=== PATIENT | male | born 1945 | race Caucasian/White ===

== ENCOUNTER 2020-02-05 02:53 | Outpatient (CLI) | payer OTHER, SELFPAY ==
[2020-02-05 12:19] LABS: Anion Gap 7.3 mmol/L (3-11); BUN 16 mg/dL (7-18); CO2 27.7 mmol/L (21.0-32.0); Calcium 9.1 mg/dL (8.5-10.1); Calculated LDL 105 mg/dL (<100); Chloride 104 mmol/L (98-107); Cholesterol 178 mg/dL (<200); Glucose 93 mg/dL (74-106); HDL Cholesterol 52 mg/dL (40-60); Potassium 4.4 mmol/L (3.5-5.1); Sodium 139 mmol/L (136-145); Triglyceride 106 mg/dL (<150)
[2020-02-06 11:39] LABS: Hepatitis C Ab w Rflx HCV PCR Negative (Negative)
[2020-02-09 20:56] LABS: Anaplasma phagocytophilum Negative (Negative); B. miyamotoi PCR Negative (Negative); Babesia divergens/MO-1 Negative (Negative); Babesia duncani Negative (Negative); Babesia microti Negative (Negative); Ehrlichia chaffeensis Negative (Negative); Ehrlichia ewingii/canis Negative (Negative); Ehrlichia muris eauclairensis Negative (Negative)
== END 2020-02-05 03:13 ==
PROVIDERS: PCP Family Medicine; Visit Provider Family Medicine
DX: I10 Essential (primary) hypertension (principal); R35.1 Nocturia; N40.1 Benign prostatic hyperplasia with lower urinary tract symptoms; E66.9 Obesity, unspecified; Z11.59 Encounter for screening for other viral diseases
CPT/HCPCS: 36415; 80048; 80061; 86803; 87798; 84154

== ENCOUNTER 2021-09-22 12:29 | Emergency (ER) | payer OTHER, SELFPAY ==
--- NOTE | 2021-09-22 12:30 | RT.EKG_ITS ---
APPROVED REPORT Exam: Resting ECG Reason for Exam: High bp Patient Location: E HR:74 bpm ECG Measurements Heart Rate 74 AXIS AK 162 P 63 QRSd 138 QRS 57 QT 422 T 34 QTc 468 Conclusion Sinus rhythm...normal P axis, V-rate 60- 99 Right bundle branch block...QRSd>120, terminal axis(90,270) Physician: Rate 74, intervals stable, QRS slightly widened, right bundle branch block. This does earl ear to be new compared to EKG from 2015. Negative for SCARBOSSA
[2021-09-22 12:53] VITALS: BP 164/76; PULSE 74; RESP 16; TEMP 37; O2SAT 95
--- NOTE | 2021-09-22 14:00 | DI.CT_ITS ---
Exam(s) CT BRAIN NECK CTA EXAM: CT BRAIN NECK CTA CLINICAL HISTORY: Blurry vision, Elevated BP. TECHNIQUE: Imaging Protocol: Axial CT angiography was performed with multi-slice acquisition and mu lti-planar and/or 3D reconstructions. CONTRAST MATERIAL: Intravenous: Omnipaque 350 Contrast volume:75cc COMPARISON: No exams were available for comparison FINDINGS: Incidentally noted is some infiltrate in the left upper lobe seen in the most peripheral aspect of th e field of view of this study. CTA Neck W: Anterior circulation: Both common carotid arteries ascend with normal luminal diameters. However, there is heavily calcifi ed plaque evident at the right carotid bifurcation and proximal right internal carotid artery, with m [id number] stenosis at this level. Plaque is also seen in the left carotid bulb and proximal ICA and medial wall of the left ICA slightly high in the neck with significant stenosis also on this side. Posterior circulation: Both vertebral arteries originated conventional fashion off of the subclavian arteries. There does n ot appear to be obvious stenosis at the origin of the vertebral arteries. Both vertebral arteries as cend with approximately equal diameters in the foramen transverse area in (4 millimeters). At the skull base both vertebral arteries contribute to the formation of the basilar artery. CTA Brain W: Anterior circulation: Both internal carotid arteries are patent in the skull base-carotid canals and cavernous sinuses. Linda praclinoid aspects are patent. A1 segments appear patent as are the anterior cerebral arteries. The re is no aneurysm at the level of the anterior communicating artery. Both middle cerebral arteries appear patent Posterior circulation: The basilar artery is formed by both vertebral arteries and ascends in the midline normal luminal pratima meter. Distally gives off superior cerebellar arteries and above this level terminates as bilateral patent posterior cerebral arteries. There is no evidence of aneurysm at the tip of the basilar arter y. CT BRAIN: There is no evidence of intracranial hemorrhage, mass effect, or shift of midline structures. There are no extra-axial fluid collections. Ventricles are not enlarged or shifted. There are no ring enh ancing lesions in the brain and no abnormal meningeal enhancement. There is some periventricular hypodensity consistent with chronic small vessel disease. This is slig htly more prominent on the right side. IMPRESSION: 1. There is heavily calcified plaque at the right carotid bifurcation proximal internal carotid arter y and what appears to be significant stenosis at this level. Similar but less plaque noted at the le ft carotid bifurcation and proximal left ICA. Recommend further imaging Doppler to determine velocit ies. 2. Vertebral arteries are patent in the neck. 3. No significant stenosis nor occlusion of intracranial arteries. No aneurysms evident. 4. No evidence of intracranial hemorrhage, intra or extra-axial and no abnormal ring-enhancing lesion s in the brain nor abnormal meningeal enhancement. Some periventricular hypodensity consistent chron ic small vessel disease is noted. 5. Recommend follow-up MRI with diffusion imaging. Findings discussed by myself with the ER provider RADIATION DOSE DELIVERED: 1,964.93mGy.cm Total DLP DATA REPOSITORY: All CT scans at this facility are submitted to the National Radiology Data Registry (NRDR) Dose Index Registry (DIR) with the [employer] (ACR). RADIATION OPTIMIZATION: All CT scans at this facility use at least one of these dose optimization te chniques: automated exposure control; mA and/or kV adjustment per patient size (includes targeted exa ms where dose is matched to clinical indication); or iterative reconstruction.
[2021-09-22 14:17] VITALS: RESP 16
[2021-09-22 14:24] LABS: Abs Immature Grans 0.04 10^3/uL (0.0-0.06); Absolute Basophil Count 0.04 10^3/uL (0.0-0.2); Absolute Eosinophil Count 0.18 10^3/uL (0.0-0.7); Absolute Lymphocyte Count 1.56 10^3/uL (1.2-3.4); Absolute Monocyte Count 0.73 10^3/uL (0.1-0.8); Absolute Neutrophil Count 6.48 10^3/uL (1.2-6.7); Basophils % 0.4; HCT 41.5 % (40.0-50.0); HGB 13.1 g/dL (13.5-17.5); Immature Grans % 0.4; Lymphocytes % 17.3; MCH 28.7 pg (27.0-33.0); MCHC 31.6 % (32.0-36.0); MCV 90.8 fL (80-95); MPV 9.6 fL (8.0-11.0); Monocytes % 8.1; Neutrophils % 71.8; Nucleated RBC 0 %; Platelet Count 401 10^3/uL (130-400); RBC 4.57 10^6/uL (4.36-5.78); RDW 13.2 % (11.8-14.1); RDW-SD 44.6 fL; WBC 9.03 10^3/uL (4.4-10.8)
[2021-09-22] MEDS: Omnipaque 350 MG/ML 100 ML BTL IJ (14:34)
[2021-09-22] MEDS: Normal Saline Flush 10 ML SYR IVP (14:35)
[2021-09-22 14:38] LABS: ALT 15 U/L (16-63); AST 14 U/L (15-37); Albumin 3.8 g/dL (3.4-5.0); Alkaline Phosphatase 38 U/L (46-116); Anion Gap 6.8 mmol/L (3-11); BUN 16 mg/dL (7-18); Bilirubin, Total 0.6 mg/dL (0.2-1.0); CO2 30.2 mmol/L (21.0-32.0); CREATININE 0.7 mg/dL (0.70-1.30); Calcium 9.4 mg/dL (8.5-10.1); Chloride 102 mmol/L (98-107); Glucose 95 mg/dL (74-106); Magnesium 2.3 mg/dL (1.8-2.4); Potassium 4.3 mmol/L (3.5-5.1); Sodium 139 mmol/L (136-145); Total Protein 8.1 g/dL (6.4-8.2)
[2021-09-22 14:43] LABS: Troponin I < 50 ng/L (<or=60)
--- NOTE | 2021-09-22 15:15 | DI.US_ITS ---
Exam(s) US CAROTID EXAM: US CAROTID CLINICAL HISTORY: Blurry vision question of TIA. TECHNIQUE: Ultrasound carotids performed using grayscale, color-flow, and spectral Doppler imaging. COMPARISON: No exams were available for comparison FINDINGS: RIGHT CAROTID ARTERY: There is calcified and noncalcified plaque at the carotid bulb and proximal internal carotid artery h owever, velocities are not significantly elevated, implying that the amount of stenosis is less than 50 percent. LEFT CAROTID ARTERY: There is also plaque at the carotid bulb and proximal left ICA but without significant elevated veloc ities implying stenosis less than 50 percent. VERTEBRAL ARTERIES: Antegrade flow demonstrated in both vertebral arteries. Measurements: R Bulb: 80.3cm/s PS / 9.4cm/s ED R CCA: 98.3cm/s PS / 12.3cm/s ED R ECA: 94cm/s PS / 12.3cm/s ED R ICA Prox: 85.3cm/s PS /16.6cm/s ED R ICA Mid: 75.2cm/s PS / 18.1cm/s ED R ICA Distal: 100.5cm/s PS /24.6cm/s ED R Vert: 49.2cm/s PS / 13cm/s ED R SVR: 1.02 R DVR: 2 L Bulb: 79.5cm/s PS /15.9cm/s ED L CCA: 99.8cm/s PS / 16.6cm/s ED L ECA: 132.3cm/s PS /11.6cm/s ED L ICA Prox:68cm/s PS / 13cm/s ED L ICA Mid: 88.2cm/sPS / 19.5cm/s ED L ICA Distal: 115cm/s PS / 27.5cm/s ED L Vert: 40.5cm/s PS / 9cm/s ED L SVR: 1.15 L DVR: 1.66 IMPRESSION: Plaque at both carotid bulbs and proximal internal carotid arteries, more prominent on the right side . However, non elevated velocities imply that the amount of stenosis is most probably less than 50 p ercent bilaterally. Antegrade flow is demonstrated in both vertebral arteries. Criteria for Carotid Stenosis: Normal: ICA PSV <125 cm/s no plaque or intimal thickening is visible. <50% stenosis: ICA PSV <125 cm/s and plaque or intimal thickening is visible. 50-69% stenosis: ICA PSV is 125-250 cm/s and plaque is visible. >70% stenosis to near occlusion: ICA PSV >250 cm/s with visible plaque and luminal narrowing. DATA REPOSITORY:
--- NOTE | 2021-09-22 15:52 | ED.GENADUL_ITS ---
Discharge Plan Disposition Patient Disposition: HOME Condition: Improving Discharge Details Clinical Impression: Blurred vision, bilateral Primary Care Provider: Sal Rudd ED Provider: Dionte Mixon Home Meds and New Rx's Prescriptions: New aspirin 81 mg tablet,chewable 81 mg PO DAILY Qty: 30 1RF Continued CENTRUM TABLET 1 EACH tablet 1 tab PO DAILY 0RF losartan [Cozaar] 50 MG tablet 50 mg PO DAILY Qty: 90 1RF Rx Instructions: NAME BRAND MEDICALLY NECESSARY DUE TO MUSCLE PAIN WITH GENERIC Discharge Instructions Instructions: Transient Ischemic Attack (ED), Blurred Vision (ED) Additional Instructions: As discussed if you have any new or worsening symptoms you should return immediately to the emergency department for reassessment. Do not wait as there are time sensitive medications that we may be able to give you to help with your symptoms. It is very important that you continue to take your medications and you may add a daily baby aspirin. Please follow-up with your primary care provider preferably early next week. Referrals: Sal Rudd [Primary Care Provider] - 5 days (Please follow-up with your primary care provider for reassessment of your condition.) Discharge Data Discharge Date/Time-TO BE ENTERED AT DEPARTURE: 09/22/21 16:52 Medical Decision Making <Dionte Mixon NP - Last Filed: 09/23/21 08:29> Patient presenting to the emergency department for chief complaint of blurry vision. Patient reports between 4 and 4-1/2 hours prior to arrival he was reading the news and had an episode of blurry vision. This episode seemed to last about 1 hour and did not change with adding or removing his glasses. Patient denies any vision loss, headache, chest pain, or other focal neurolo gical symptoms. Patient states full resolution of symptoms and is pain-free at time of assessment. Physical exam is unremarkable for any acute findings, no focal neurological deficits, normal cardiac exam, normal cranial nerve exam. Patient is mildly hypertensive at arrival. Plan to check labs and perform CT and CTA imaging of head neck and brain. Given that patient is asymptomatic at this time I do not feel that any interventions are needed. Review of labs show very mild anemia and otherwise nondiagnostic labs. CT &CTA IMPRESSION: 1. There is heavily calcified plaque at the right carotid bifurcation proximal internal carotid artery and what appears to be significant stenosis at this level. Similar but less plaque noted at the left carotid bifurcation and proximal left ICA. Recommend further imaging Doppler to determine velocities. 2. Vertebral arteries are patent in the neck. 3. No significant stenosis nor occlusion of intracranial arteries. No aneurysms evident. 4. No evidence of intracranial hemorrhage, intra or extra-axial and no abnormal ring-enhancing lesions in the brain nor abnormal meningeal enhancement. Some periventricular hypodensity consistent chronic small vessel disease is noted. 5. Recommend follow-up MRI with diffusion imaging. [place] TIA score is 4 but given new noted of carotid stenosis with elevated score to 6 making patient medium risk. Doppler was ordered while patient was in emergency department as recommended but no availability of MRI. Did discuss with patient further work-up and admission for MRI imaging along with monitoring of patient versus outpatient follow-up. Patient states that he would prefer to go home and will return to the emergency department for any change in symptoms. Patient signed out to [facility] pending Doppler imaging. 1630: Originally patient was going to be signed out to me by my colleague however patient was discovered prior to my evaluation. Patient not seen by me in the ER at this time. Preliminary results from radiation therapy technician in regards to carotid Doppler. Report of minimal stenosis is noted. Given this I do feel that patient is safe for discharge. Did discuss with patient potential for further work-up including MRI and admission versus monitoring outpatient and following up with primary care. Shared decision-making was utilized after patient was given full information on potential course of illness and we decided for discharge and follow-up with primary care with patient to closely monitor symptoms and return immediately. Thoroughly discussed with patient time sensitive nature of possible TIA versus stroke type presentation and that it is important that he comes immediately to the emergency department for any abnormal neurological symptoms he is experiencing. After discussion of diagnosis and plan of care patient has no further needs, questions, or concerns and states clear understanding to return to the emergency department for any worsening symptoms. Lab Data Lab results reviewed: Yes I reviewed the patient's lab results. Labs: Laboratory Tests Range/Units 09/22/21 09/22/21 09/22/21 13:53 14:10 14:10 WBC (4.4-10.8) 10^3/uL 9.03 RBC (4.36-5.78) 10^6/uL 4.57 Hgb (13.5-17.5) g/dL 13.1 L Hct (40.0-50.0) % 41.5 MCV (80-95) fL 90.8 MCH (27.0-33.0) pg 28.7 MCHC (32.0-36.0) % 31.6 L RDW (11.8-14.1) % 13.2 Plt Count (130-400) 10^3/uL 401 H MPV (8.0-11.0) fL 9.6 Immature Gran % 0.4 Neutrophils % 71.8 Lymphocytes % 17.3 Monocytes % 8.1 Eosinophils % 2.0 Basophils % 0.4 Nucleated RBC % % 0 Absolute Neutrophils (1.2-6.7) 10^3/uL 6.48 Absolute Lymphocytes (1.2-3.4) 10^3/uL 1.56 Absolute Monocytes (0.1-0.8) 10^3/uL 0.73 Absolute Eosinophils (0.0-0.7) 10^3/uL 0.18 Absolute Basophils (0.0-0.2) 10^3/uL 0.04 Sodium Cancelled 139 Potassium Cancelled 4.3 Chloride Cancelled 102 Carbon Dioxide Cancelled 30.2 Anion Gap Cancelled 6.8 BUN Cancelled 16 Creatinine Cancelled 0.7 Estimated GFR/1.73 m2 Cancelled >= 60.00 Glucose Cancelled 95 Calcium Cancelled 9.4 Magnesium Cancelled 2.3 Total Bilirubin Cancelled 0.6 AST Cancelled 14 L ALT Cancelled 15 L Alkaline Phosphatase Cancelled 38 L Troponin I (<or=60) ng/L < 50 Total Protein Cancelled 8.1 Albumin Cancelled 3.8 ECG Data Interpretation: Please see Dr. Langley's full interpretation of EKG which appears to show a right bundle branch block which I do not feel is acute given that patient has no cardiac complaints. No signs of A. fib or STEMI noted. <Nicolette Olson - Last Filed: 09/22/21 16:45> Patient presenting to the emergency department for chief complaint of blurry vision. Patient reports between 4 and 4-1/2 hours prior to arrival he was reading the news and had an episode of blurry vision. This episode seemed to last about 1 hour and did not change with adding or removing his glasses. Patient denies any vision loss, headache, chest pain, or other focal neurological symptoms. Patient states full resolution of symptoms and is pain- free at time of assessment. Physical exam is unremarkable for any acute findings, no focal neurological deficits, normal cardiac exam, normal cranial nerve exam. Patient is mildly hypertensive at arrival. Plan to check labs and perform CT and CTA imaging of head neck and brain. Given that patient is asymptomatic at this time I do not feel that any interventions are needed. Review of labs show very mild anemia and otherwise nondiagnostic labs. CT &CTA IMPRESSION: 1. There is heavily calcified plaque at the right carotid bifurcation proximal internal carotid artery and what appears to be significant stenosis at this level. Similar but less plaque noted at the left carotid bifurcation and proximal left ICA. Recommend further imaging Doppler to determine velocities. 2. Vertebral arteries are patent in the neck. 3. No significant stenosis nor occlusion of intracranial arteries. No aneurysms evident. 4. No evidence of intracranial hemorrhage, intra or extra-axial and no abnormal ring-enhancing lesions in the brain nor abnormal meningeal enhancement. Some periventricular hypodensity consistent chronic small vessel disease is noted. 5. Recommend follow-up MRI with diffusion imaging. [place] TIA score is 4 but given new noted of carotid stenosis with elevated score to 6 making patient medium risk. Doppler was ordered while patient was in emergency department as recommended but no availability of MRI. Did discuss with patient further work-up and admission for MRI imaging along with monitoring of patient versus outpatient follow-up. Patient states that he would prefer to go home and will return to the emergency department for any change in symptoms. Patient signed out to [facility] pending Doppler imaging. 1630: Originally patient was going to be signed out to me by my colleague however patient was discovered prior to my evaluation. Patient not seen by me in the ER at this time. HPI <Dionte Mixon NP - Last Filed: 09/23/21 08:29> General Date/Time Provider Initiated Documentation: 09/22/21 12:40 . History of Present Illness 76 year old M presents to the emergency department with the chief complaint of Blurry vision, described as moderate, Quality is described as other (Denies pain and discomfort), Patient reports no radiation. Patient started experiencing this hour(s) (4) and it has been now resolved. Related Data Home Medications Medication Instructions Recorded Confirmed Centrum Tablet 1 tab PO DAILY 12/25/12 09/22/21 losartan 50 mg tablet (Cozaar) 50 mg PO DAILY #90 tab-cap 08/04/15 09/22/21 aspirin 81 mg chewable tablet 81 mg PO DAILY #30 tab 09/22/21 Previous Rx's Medication Instructions Recorded aspirin 81 mg chewable tablet 81 mg PO DAILY #30 tab 09/22/21 Allergies Allergy/AdvReac Type Severity Reaction Status Date / Time doxycycline Allergy Intermediate SKIN RASH Unverified 09/22/21 13:00 lactose Allergy Mild gas Unverified 09/22/21 13:00 valdecoxib Allergy Unknown unknown Unverified 09/22/21 13:00 Sulfa (Sulfonamide AdvReac Intermediate Skin Rash Unverified 09/22/21 13:00 Antibiotics) lisinopril AdvReac Mild COUGH Unverified 09/22/21 13:00 General Stated Complaint: GenMedical JOSE J: 3 Review of Systems <Dionte Mixon NP - Last Filed: 09/23/21 08:29> Constitutional Constitutional: Denies chills, Denies fever(s), Denies frequent falls, Denies headache(s) and Denies weakness Eyes Eyes: Reports as per HPI, Reports blurry vision and Denies loss of vision ENT Ears, Nose, Mouth, and Throat: Denies dizziness, Denies headache(s) and Denies neck pain Cardiovascular Cardiovascular: Denies chest pain, Denies syncope, Denies radiating jaw, neck or arm pain and Denies dyspnea Respiratory Respiratory: Denies cough and Denies dyspnea Gastrointestinal Gastrointestinal: Denies nausea and Denies vomiting Musculoskeletal Musculoskeletal: Denies back pain, Denies neck pain and Denies numbness Neurologic Neurologic: Reports as per HPI, Denies abnormal movements, Denies dizziness, Denies syncope, Denies frequent falls, Denies headache(s), Denies loss of vision, Denies numbness, Denies sensory deficit, Denies paresthesias and Denies weakness Psychiatric Psychiatric: Denies anxiety PFSH <Dionet Mixon NP - Last Filed: 09/23/21 08:29> All Active Problems (Updated 09/22/21 @ 16:14 by Dionte Mixon NP) Blurred vision, bilateral (Acute) Surgical History (Updated 05/29/18 @ 14:34 by [facility]) Repair of inguinal hernia B/L Replacement of total knee joint LEFT Rotator Cuff Repair LEFT Family History Mother Essential hypertension Personal history of malignant neoplasm BREAST Father , UNKNOWN No problems noted. Sister Hyperlipidemia Asthma Brother Diabetes Heart disease PACEMAKER Social History Smoking/Tobacco Use Status: Former Tobacco Use Smoking risk assessment performed?: Yes Drug use: Never Substance use type: does not use Exam <Dionte Mixon NP - Last Filed: 09/23/21 08:29> Const General: cooperative, healthy appearing, no acute distress and well groomed Orientation: alert, awake and oriented x3 HENMT Head: normal to inspection Ears: hearing grossly normal bilaterally and TM's normal bilaterally General nose exam: external nose normal Face and sinus: normal facial exam Mouth: oral mucosae normal and moist mucous membranes Throat: posterior oropharynx normal Eyes Visual Hansen: normal visual hansen by confrontation Alignment and Position: alignment normal Periorbital: periorbital findings normal Eyelids: eyelids normal Sclera: sclerae normal Cornea: corneas normal Pupils: PERRL EOM: EOM intact bilaterally Neck Neck: normal visual inspection, full ROM, no lymphadenopathy and no meningeal signs Resp Effort & Inspection: normal respiratory effort and able to speak in complete sentences Auscultation: clear to auscultation bilaterally Cardio Rate: regular rate Rhythm: regular rhythm Heart Sounds: S1 normal and S2 normal Skin General skin exam: no rashes or lesions noted Neuro General: patient alert, patient awake, patient oriented x3, gait normal, tone normal, moves all extremities, no focal motor deficits, CN's II-XI intact bilaterally and not confused Cognition: normal cognition Speech: speech normal Motor: muscle tone normal throughout, strength 5/5 throughout, no pronator drift, no movement abnormalities noted and no fasciculations Sensory Exam: no sensory deficits noted Coordination: Romberg test normal and Does not sway with eyes open Course <Dionte Mixon NP - Last Filed: 09/23/21 08:29> Vital Signs Vital signs: Vital Signs Temperature 37 C 09/22/21 12:53 Pulse 74 09/22/21 12:53 Respiratory Rate 16 09/22/21 12:53 Blood Pressure 164/76 H 09/22/21 12:53 Pulse Oximetry 95 09/22/21 12:53 Temperature 37 C 09/22/21 12:53 Temperature Source Skin 09/22/21 12:53 Pulse 74 09/22/21 12:53 Respiratory Rate 16 09/22/21 14:17 Respiratory Effort Non-Labored 09/22/21 14:17 Respiratory Depth Normal 09/22/21 14:17 Respiratory Pattern Normal 09/22/21 14:17 Blood Pressure 164/76 H 09/22/21 12:53 Blood Pressure Position Sitting 09/22/21 12:53 Pulse Oximetry 95 09/22/21 12:53 Oxygen Delivery Method Room Air 09/22/21 12:53 Oxygen Flow Rate 0 09/22/21 12:53 Pain Level 0 09/22/21 12:53 Lab/Test Results Lab/Test Results: Laboratory Tests Range/Units 09/22/21 09/22/21 09/22/21 13:53 14:10 14:10 WBC (4.4-10.8) 10^3/uL 9.03 RBC (4.36-5.78) 10^6/uL 4.57 Hgb (13.5-17.5) g/dL 13.1 L Hct (40.0-50.0) % 41.5 MCV (80-95) fL 90.8 MCH (27.0-33.0) pg 28.7 MCHC (32.0-36.0) % 31.6 L RDW (11.8-14.1) % 13.2 Plt Count (130-400) 10^3/uL 401 H MPV (8.0-11.0) fL 9.6 Immature Gran % 0.4 Neutrophils % 71.8 Lymphocytes % 17.3 Monocytes % 8.1 Eosinophils % 2.0 Basophils % 0.4 Nucleated RBC % % 0 Absolute Neutrophils (1.2-6.7) 10^3/uL 6.48 Absolute Lymphocytes (1.2-3.4) 10^3/uL 1.56 Absolute Monocytes (0.1-0.8) 10^3/uL 0.73 Absolute Eosinophils (0.0-0.7) 10^3/uL 0.18 Absolute Basophils (0.0-0.2) 10^3/uL 0.04 Sodium Cancelled 139 Potassium Cancelled 4.3 Chloride Cancelled 102 Carbon Dioxide Cancelled 30.2 Anion Gap Cancelled 6.8 BUN Cancelled 16 Creatinine Cancelled 0.7 Estimated GFR/1.73 m2 Cancelled >= 60.00 Glucose Cancelled 95 Calcium Cancelled 9.4 Magnesium Cancelled 2.3 Total Bilirubin Cancelled 0.6 AST Cancelled 14 L ALT Cancelled 15 L Alkaline Phosphatase Cancelled 38 L Troponin I (<or=60) ng/L < 50 Total Protein Cancelled 8.1 Albumin Cancelled 3.8 Sign Out <Dionte Mixon NP - Last Filed: 09/23/21 08:29> Sign Out Data: Sign Out Comment: Patient signed out to [facility] pending Doppler imaging. Last updated by Dionte Mixon NP at 09/22/21 16:09
[2021-09-22 16:53] VITALS: BP 156/72; PULSE 74; RESP 16; TEMP 37; O2SAT 96
--- NOTE | 2021-09-22 17:49 | NUR.NOTE ---
Nursing Note: referral to pcp for follow
--- NOTE | 2021-09-23 11:43 | CMACTNOTE_ITS ---
- If Service Date Differs Date of service: 09/23/21 Time of Service: 11:43 Care Management Activity Note Jd is seen in the ED for blurry vision. At the request of ED provider, MAEGAN contacts [facility] in [place], patient's PCP's office, to advise of Jd's ED visit and to request that they outreach directly to patient to schedule a follow up appointment within a week. MAEGAN also sends a copy of the ED note to PCP via fax.
== END 2021-09-22 16:52 | disposition home or self-care (01) ==
PROVIDERS: Emergency Provider Nurse Practitioner Family; PCP Family Medicine
DX: H53.8 Other visual disturbances (principal); R03.0 Elevated blood-pressure reading, without diagnosis of hypertension; I65.23 Occlusion and stenosis of bilateral carotid arteries; D64.9 Anemia, unspecified
CPT/HCPCS: 70496; 70498; 80053; 93005; 99285; 83735; 84484; 85025; 93010; 93880; 99284; J3490

== ENCOUNTER 2024-05-14 11:44 | Emergency (ER) | payer MEDICARE, SELFPAY ==
[2024-05-14] VITALS (41 sets, daily range): BP systolic 140–170; BP diastolic 59–88; PULSE 67–79; RESP 12–22; TEMP 36.5; O2SAT 93–97
--- NOTE | 2024-05-14 11:45 | RT.EKG_ITS ---
APPROVED REPORT Exam: Resting ECG Reason for Exam: Syncop Patient Location: E HR:74 bpm ECG Measurements Heart Rate 74 AXIS [place] 169 P 58 QRSd 132 QRS 88 QT 412 T 39 QTc 457 Conclusion Sinus rhythm...normal P axis, V-rate 60- 99 Nonspecific intraventricular conduction delay...QRSd >115mS, not LBBB/RBBB Borderline ST elevation, anterolateral leads...ST >0.06mV, I aVL V2-V6 Physician: unchanged from prior ekg
[2024-05-14 12:36] LABS: Abs Immature Grans 0.03 10^3/uL (0.0-0.06); Absolute Basophil Count 0.04 10^3/uL (0.0-0.2); Absolute Eosinophil Count 0.28 10^3/uL (0.0-0.7); Absolute Lymphocyte Count 1.38 10^3/uL (1.2-3.4); Absolute Monocyte Count 0.72 10^3/uL (0.1-0.8); Absolute Neutrophil Count 6.54 10^3/uL (1.2-6.7); Basophils % 0.4 %; Eosinophils % 3.1 %; HCT 38.5 % (40.0-50.0); HGB 12.3 g/dL (13.5-17.5); Immature Grans % 0.3 %; Lymphocytes % 15.4 %; MCH 28.8 pg (27.0-33.0); MCHC 31.9 % (32.0-36.0); MCV 90 fL (80-95); MPV 9.9 fL (8.0-11.0); Neutrophils % 72.8 %; Platelet Count 322 10^3/uL (130-400); RBC 4.27 10^6/uL (4.36-5.78); RDW 13.7 % (11.8-14.1); RDW-SD 45.1 fL; WBC 8.99 10^3/uL (4.4-10.8)
[2024-05-14] MEDS: Normal Saline 500 ML IV (12:36)
[2024-05-14 12:49] LABS: INR 1.1 (0.9-1.1); PTT Activated 30.2 sec (23.6-32.8); Prothrombin Time 10.6 sec (9.1-11.1)
[2024-05-14 13:05] LABS: Hemoglobin A1C 5.8 % (<5.7)
[2024-05-14 13:09] LABS: ALT 17 U/L (16-63); AST 16 U/L (15-37); Albumin 3.6 g/dL (3.4-5.0); Alkaline Phosphatase 36 U/L (46-116); Anion Gap 7.5 mmol/L (3-11); BUN 16 mg/dL (7-18); Bilirubin, Total 0.87 mg/dL (0.2-1.0); CO2 27.5 mmol/L (21.0-32.0); Chloride 101 mmol/L (98-107); Estimated GFR 76.56 (mL/min/1.73m2); Glucose 108 mg/dL (74-106); Magnesium 2.1 mg/dL (1.8-2.4); Sodium 136 mmol/L (136-145); TSH 0.87 uIU/Ml (0.36-3.74); Total Protein 7.7 g/dL (6.4-8.2); Troponin I 4 ng/L (<or=76)
[2024-05-14 13:15] LABS: Calcium < 5.5 mg/dL (8.5-10.1)
[2024-05-14] MEDS: Normal Saline - Diluent 50 ML VIAL IJ (13:32)
[2024-05-14] MEDS: Omnipaque 350 MG/ML 100 ML BTL 75 ML IJ (13:33)
--- NOTE | 2024-05-14 13:41 | DI.CT_ITS ---
Exam(s) CT HEAD WO EXAM: CT HEAD WO CLINICAL HISTORY: fall, syncope. TECHNIQUE: Imaging Protocol: Axial computed tomography images with coronal and sagittal reformatted images were created and reviewed COMPARISON: CT CT BRAIN NECK CTA from 09/22/2021 FINDINGS: Ventricles and Extra axial spaces: Normal in size and morphology for the patient's age. Hemorrhage: None. Cerebral parenchyma: No evidence of acute infarct or mass. What mild white matter changes of microv ascular disease. Midline shift: None. Brainstem/Cerebellum: Normal. Calvarium: Normal. Visualized Paranasal sinuses:Clear. Mastoids: Clear. Soft Tissues: Unremarkable. ORBITS: Unremarkable. PITUITARY: Not enlarged. IMPRESSION: No acute intracranial process. RADIATION DOSE DELIVERED: 830.64mGy.cm Total DLP DATA REPOSITORY: All CT scans at this facility are submitted to the National Radiology Data Registry (NRDR) Dose Index Registry (DIR) with the [employer] (ACR). RADIATION OPTIMIZATION: All CT scans at this facility use at least one of these dose optimization te chniques: automated exposure control; mA and/or kV adjustment per patient size (includes targeted exa ms where dose is matched to clinical indication); or iterative reconstruction.
--- NOTE | 2024-05-14 13:42 | DI.CT_ITS ---
Exam(s) CT CHEST PE CTA EXAM: CT CHEST PE CTA CLINICAL HISTORY: fall, right chest pain, syncope. TECHNIQUE: Imaging Protocol: Axial CT angiography was performed with multi-slice acquisition and mu lti-planar reconstructions as well as axial, coronal and sagittal MIP reconstructions. CONTRAST MATERIAL: Intravenous: Omnipaque 350 Contrast volume:100 ml COMPARISON: No exams were available for comparison FINDINGS: Pulmonary Arteries: No evidence of filling defect to suggest pulmonary emboli. Tracheobronchial tree: No mucous plugging. Mediastinum and Neena: Massive hiatal hernia containing the stomach, splenic flexure of the colon as w ell as majority of the pancreas as well as mesenteric fat. No evidence of obstruction. Pulmonary parenchyma: No consolidation or dominant measurable mass. Pleura: No effusion or pneumothorax. Heart: The heart is not dilated. Moderate coronary artery calcifications are seen. Aorta: Thoracic aorta non-dilated. No dissection. Upper abdomen: No acute findings. Bones: Unremarkable for age. Tubes, Catheters, and Lines: None Soft tissues: Mild bilateral gynecomastia. IMPRESSION: Massive hiatal hernia containing stomach, portion of splenic flexure as well as pancreas and surround ing mesenteric fat. No evidence of obstruction. No evidence of pulmonary emboli. No acute posttraumatic abnormality. RADIATION DOSE DELIVERED: 184.2mGy.cm Total DLP DATA REPOSITORY: All CT scans at this facility are submitted to the National Radiology Data Registry (NRDR) Dose Index Registry (DIR) with the [employer] (ACR). RADIATION OPTIMIZATION: All CT scans at this facility use at least one of these dose optimization te chniques: automated exposure control; mA and/or kV adjustment per patient size (includes targeted exa ms where dose is matched to clinical indication); or iterative reconstruction.
[2024-05-14] MEDS: CALCIUM GLUCONATE in NaCl 1 GM/50 ML BAG IVPB (13:44)
[2024-05-14 13:51] LABS: Troponin I 4 ng/L (<or=76)
--- NOTE | 2024-05-14 14:22 | ED.GENADUL_ITS ---
Discharge Plan Disposition Patient Disposition: Home Condition: Good Discharge Details Clinical Impression: Near syncope, Hernia, hiatal, Hypocalcemia Primary Care Provider: Sal Rudd ED Provider: Homer Langley Home Meds and New Rx's Prescriptions: No Action CENTRUM TABLET 1 EACH tablet 1 tab PO DAILY losartan [Cozaar] 50 MG tablet 50 mg PO DAILY Qty: 90 Rx Instructions: NAME BRAND MEDICALLY NECESSARY DUE TO MUSCLE PAIN WITH GENERIC aspirin 81 mg tablet,chewable 81 mg PO DAILY Qty: 30 1RF meloxicam 15 mg tablet 15 mg PO DAILY Patient Comments: TAKE ONE TABLET BY MOUTH EVERY DAY Discharge Instructions Instructions: Hypocalcemia, Fainting, Adult ED Additional Instructions: At this time your repeat calcium level has come back and is normal. Please take [id number]-[id number] Tums 1 tablet daily for the next 1 to 2 weeks to maintain high calcium levels. The rest of your workup is very reassuring. We did send testing for send out Lyme testing. You will be contacted if these return positive. Please follow-up with the surgeon for further nonemergent outpatient discussion for potential surgical options for your hernia. Please follow-up closely with your primary care provider for reassessment and recheck of your calcium levels. We have placed a referral for a Holter monitor which will evaluate for cardiac dysrhythmias that could have cause fainting. They will contact you for an appointment time. If you notice any worsening of your symptoms, or any new symptoms such as vomiting, diarrhea, fever, chills, shortness of breath, chest pain, numbness, weakness, or fainting , please return immediately to the emergency department for reevaluation. Please follow up with your primary care provider as soon as possible for reassessment and reevaluation. As always, it was a pleasure participating in your medical care today. Referrals: Sal Rudd [Primary Care Provider] - Discharge Orders Other Ambulatory Orders: Holter Monitor (Routine) Timeframe: 1 Week Facility: [facility] - Location: Respiratory Therapy Ordered By: Homer Langley [facility] General Date/Time Provider Initiated Documentation: 05/14/24 11:47 . HPI Narrative: 79-year-old male with a past medical history of hypertension, previous TAVR replacement, rotator cuff repair, previous inguinal hernia surgery, presents today for feeling weak and having a syncopal episode last night. Patient states that he was out walking his dog when he felt very weak and nearly passed out. He fell onto the ground, did hit the right side of his body. He did not strike his head. He states the reason he recalls the event. He denies any nausea or vomiting or diarrhea. He denies any significant medication changes aside for starting meloxicam recently. He denies any headache or chest pain or neck pain. He denies any history of heart attack or stroke. Additionally the patient does admit to getting bit by a tick on his left chest. They were able to take the body off but not get the head out. This was yesterday. He admits to a small area of redness around that. Related Data Home Medications ?Medication ?Instructions ?Recorded ?Confirmed Centrum Tablet 1 tab PO DAILY 12/25/12 05/14/24 losartan 50 mg tablet (Cozaar) 50 mg PO DAILY #90 tab-caps 08/04/15 05/14/24 aspirin 81 mg chewable tablet 81 mg PO DAILY #30 tabs 09/22/21 05/14/24 meloxicam 15 mg tablet 15 mg PO DAILY 05/14/24 05/14/24 Previous Rx's ?Medication ?Instructions ?Recorded aspirin 81 mg chewable tablet 81 mg PO DAILY #30 tabs 09/22/21 Allergies Allergy/AdvReac Type Severity Reaction Status Date / Time doxycycline Allergy Intermediate SKIN RASH Unverified 05/14/24 12:35 lactose Allergy Mild gas Unverified 05/14/24 12:35 valdecoxib Allergy Unknown unknown Unverified 05/14/24 12:35 Sulfa (Sulfonamide AdvReac Intermediate Skin Rash Unverified 05/14/24 12:35 Antibiotics) lisinopril AdvReac Mild COUGH Unverified 05/14/24 12:35 General Stated Complaint: [id number] JOSE J: 3 Review of Systems All systems reviewed & are unremarkable except as noted in HPI and below Exam Narrative Exam Narrative: 1.Const: Well-nourished, Well-developed, appearing stated age 2.Eyes: PERRL, no conjunctival injection, and symmetrical lids. 3.ENT: Atraumatic external nose and ears. Moist MM. Neck: Symmetric, trachea midline, No thyromegaly. 4.CVS: +S1/S2, No murmurs or gallops. Peripheral pulses 2+ and equal in all extremities. Brisk capillary refill in all extremities. 5.RESP: Unlabored respiratory effort. Clear to auscultation bilaterally. No wheezes rales or rhonchi 6.GI: Soft, Nontender/Nondistended, No hepatosplenomegaly. No guarding or rebound. 7.MSK: Normocephalic/Atraumatic, Extremities w/o deformity or ttp No cyanosis or clubbing, Normal movement of all extremities. No significant tetany 8.Skin: Warm, Dry. No rashes or lesions. There is a small erythematous area with a dark center aspect secondary to a retained tick head. 9.Neuro: dress operator II-XII grossly intact. Sensation grossly intact, no focal n eurologic deficits. 10.Psych: (AAO) x3. Appropriate mood and affect Course Vital Signs Vital signs: Vital Signs Temperature 36.5 C 05/14/24 11:49 Pulse 78 05/14/24 11:49 Respiratory Rate 20 05/14/24 11:49 Blood Pressure 167/82 H 05/14/24 11:49 Pulse Oximetry 95 05/14/24 11:49 Temperature 36.5 C 05/14/24 11:49 Temperature Source Oral 05/14/24 11:49 Pulse 72 05/14/24 14:15 Pulse 72 05/14/24 14:15 Respiratory Rate 21 05/14/24 14:15 Respiratory Effort Normal, Non-Labored 05/14/24 12:07 Respiratory Depth Normal 05/14/24 12:07 Respiratory Pattern Normal 05/14/24 12:07 Blood Pressure 158/63 H 05/14/24 14:15 Blood Pressure Mean 99 05/14/24 14:15 Blood Pressure Position Sitting 05/14/24 11:49 Pulse Oximetry 95 05/14/24 14:15 Oxygen Delivery Method Room Air 05/14/24 11:49 Oxygen Flow Rate 0 05/14/24 11:49 Lab/Test Results Lab/Test Results: Laboratory Tests Range/Units 05/14/24 05/14/24 12:24 13:21 WBC (4.4-10.8) 10^3/uL 8.99 RBC (4.36-5.78) 10^6/uL 4.27 L Hgb (13.5-17.5) g/dL 12.3 L Hct (40.0-50.0) % 38.5 L MCV (80-95) fL 90 MCH (27.0-33.0) pg 28.8 MCHC (32.0-36.0) % 31.9 L RDW (11.8-14.1) % 13.7 Plt Count (130-400) 10^3/uL 322 MPV (8.0-11.0) fL 9.9 Immature Gran % % 0.3 Neutrophils % % 72.8 Lymphocytes % % 15.4 Monocytes % % 8.0 Eosinophils % % 3.1 Basophils % % 0.4 Nucleated RBC % (0.0-0.3) % 0.0 Absolute Neutrophils (1.2-6.7) 10^3/uL 6.54 Absolute Lymphocytes (1.2-3.4) 10^3/uL 1.38 Absolute Monocytes (0.1-0.8) 10^3/uL 0.72 Absolute Eosinophils (0.0-0.7) 10^3/uL 0.28 Absolute Basophils (0.0-0.2) 10^3/uL 0.04 PT (9.1-11.1) sec 10.6 INR (0.9-1.1) 1.1 APTT (23.6-32.8) sec 30.2 Sodium (136-145) mmol/L 136 Potassium (3.5-5.1) mmol/L 4.0 Chloride (98-107) mmol/L 101 Carbon Dioxide (21.0-32.0) mmol/L 27.5 Anion Gap (3-11) mmol/L 7.5 BUN (7-18) mg/dL 16 Creatinine (0.70-1.30) mg/dL 1.0 Est GFR (CKD-EPI 2020) (mL/min/1.73m2) 76.56 Glucose (74-106) mg/dL 108 H Hemoglobin A1c (<5.7) % 5.8 H Calcium (8.5-10.1) mg/dL < 5.5 L* Magnesium (1.8-2.4) mg/dL 2.1 Total Bilirubin (0.2-1.0) mg/dL 0.87 AST (15-37) U/L 16 ALT (16-63) U/L 17 Alkaline Phosphatase (46-116) U/L 36 L Troponin I (<or=76) ng/L 4 4 Total Protein (6.4-8.2) g/dL 7.7 Albumin (3.4-5.0) g/dL 3.6 TSH (0.36-3.74) uIU/Ml 0.87 Medical Decision Making 79-year-old male with a past medical history of hypertension, previous TAVR replacement, rotator cuff repair, previous inguinal hernia surgery, presents today for feeling weak and having a syncopal episode last night. Patient states that he was out walking his dog when he felt very weak and nearly passed out. He fell onto the ground, did hit the right side of his body. He did not strike his head. He states the reason he recalls the event. He denies any nausea or vomiting or diarrhea. He denies any significant medication changes aside for starting meloxicam recently. He denies any headache or chest pain or neck pain. He denies any history of heart attack or stroke. Additionally the patient does admit to getting bit by a tick on his left chest. They were able to take the body off but not get the head out. This was yesterday. He admits to a small area of redness around that.' Exam demonstrates well-appearing male, no significant vital sign abnormality. He does have a small area of erythema over his left chest wall where the tick had still retained in it. No evidence of erythema migrans. Differential is broad, but does include cardiac dysrhythmia, PE is less likely. Intracranial etiology is of concern. We will evaluate for this including thyroid dysfunction. Will monitor closely and reassess. 2:26 PM Patient's laboratory workup has returned, no white count bandemia or left shift, troponin normal. Unexpectedly the patient's calcium is notably low less than 5.5. He has never had hypoglycemia before. We will get vitamin D studies, parathyroid hormone study, and give him an amp of calcium gluconate. Will recheck the calcium after this. Will continue to monitor closely. Pending laboratory and imaging workup otherwise. CT scan of the head is negative for acute process. Large hiatal hernia is present on CT scan of the chest, but no other acute process. I do wonder if the large hernia in the chest could be a component for these episodes of syncope. 4:08 PM Repeat calcium has returned and is normal, serial troponins are normal. No signs of other significant abnormalities otherwise. Patient feels much better. Patient stable for discharge. Will place outpatient referral for plastic surgery for outpatient discussion of potential surgical management. I do suspect that this may be a notable cause of his symptomatology. We will place outpatient referral for Holter monitor testing as well. Lyme testing has been sent. Patient otherwise stable and feels well. Recommend continued hydration at home, avoidance of significant vagal activities. I have extensively reviewed the treatment plan and discharge instructions with the patient and their family. I have addressed all patient concerns at this time. The patient and family was made aware of what symptoms to monitor for that would warrant a return to the emergency department. Discussed the plan with the patient and family, they demonstrate verbal understanding and agreement with our assessment and plan at this time. The documentation in this chart was dictated using [employer] dictation software. Please excuse any dictation errors. FINDINGS: Ventricles and Extra axial spaces: Normal in size and morphology for the patient's age. Hemorrhage: None. Cerebral parenchyma: No evidence of acute infarct or mass. What mild white matter changes of microvascular disease. Midline shift: None. Brainstem/Cerebellum: Normal. Calvarium: Normal. Visualized Paranasal sinuses:Clear. Mastoids: Clear. Soft Tissues: Unremarkable. ORBITS: Unremarkable. PITUITARY: Not enlarged. IMPRESSION: No acute intracranial process. FINDINGS: Pulmonary Arteries: No evidence of filling defect to suggest pulmonary emboli. Tracheobronchial tree: No mucous plugging. Mediastinum and Neena: Massive hiatal hernia containing the stomach, splenic flexure of the colon as well as majority of the pancreas as well as mesenteric fat. No evidence of obstruction. Pulmonary parenchyma: No consolidation or dominant measurable mass. Pleura: No effusion or pneumothorax. Heart: The heart is not dilated. Moderate coronary artery calcifications are seen. Aorta: Thoracic aorta non-dilated. No dissection. Upper abdomen: No acute findings. Bones: Unremarkable for age. Tubes, Catheters, and Lines: None Soft tissues: Mild bilateral gynecomastia. IMPRESSION: Massive hiatal hernia containing stomach, portion of splenic flexure as well as pancreas and surrounding mesenteric fat. No evidence of obstruction. No evidence of pulmonary emboli. No acute posttraumatic abnormality. Quality:SDOH Health Related Social Needs: No Data to Display Critical Care Time Critical Care Time Critical Care Time: Yes Total Critical Care Time: 45 Attestation: Upon my evaluation, this patient had a high probability of imminent or life- threatening deterioration, which required my direct attention, intervention, and personal management. I have personally provided 45 minutes of critical care time exclusive of time spent on separately billable procedures. Time includes review of laboratory data, radiology results, discussion with consultants, and monitoring for potential decompensation. Interventions were performed as documented. PFSH All Active Problems (Updated 05/14/24 @ 15:42 by Homre Langley DO) Hypocalcemia (Acute) Hernia, hiatal (Chronic) Near syncope (Acute) Surgical History Replacement of total knee joint LEFT Rotator Cuff Repair LEFT Repair of inguinal hernia B/L Family History Mother Essential hypertension Personal history of malignant neoplasm BREAST Father , UNKNOWN No problems noted. Sister Hyperlipidemia Asthma Brother Diabetes Heart disease PACEMAKER Social History Smoking/Tobacco Use Status: Former Tobacco Use Smoking risk assessment performed?: Yes Drug use: Never Substance use type: does not use POCUS Exam (ED) Limited Cardiac Exam DATE OF EXAM: 05/14/24 TIME OF EXAM: 14:59 PROVIDER THAT PERFORMED THE STUDY: Homer Langley IS THIS A REPEAT EXAM DURING THIS ENCOUNTER: no REASON FOR EXAM: Chest pain VISUALIZED STRUCTURES: Left ventricle, Right ventricle, Aortic valve, Mitral valve and Interventricular septum VIEW OBTAINED: Subxiphoid PERTINENT FINDINGS/IMPRESSION: No apparent abnormalities Exam complete
[2024-05-14 14:32] LABS: Calcium 9.7 mg/dL (8.5-10.1)
--- OUTSIDE RECORDS SUMMARY | 2024-05-14 14:40 | XMS_ITS | Encounter Summary ---
Author Organization [facility] Address [facility] [place] [address] Care Team Providers Care Physical Testing Supervisor Name Role Phone Sal Rudd MD Primary Care Provider [phone] Reason for Visit * Reason Comments Medication Refill Encounter Details Date Type Department Care Team (Late st Contact Info) Description 11/10/2015 [place] [address] Jd Evangelista MD [facility] [place] [address] Social History Tobacco Use Types Packs/Day Years Used Date Smoking Tobacco: Former Cigarettes Q uit: 01/13/1995 Sex and Gender Information Value Date Recorded Sex Assigned at Not on file Gender Identity Not on file Sexual Orientation Not on file documented as of this encounter Plan of Treatment Not on file documented as of this encounter Visit Diagnoses Not on filedocumented in this encounter Care Teams Physical Testing Supervisor Relationship Specialty Start Date End Date Sal Rudd MD [address] [place] [address] PCP - General 03/24/15 documented as of this encounter
--- OUTSIDE RECORDS SUMMARY | 2024-05-14 14:40 | XMS_ITS | Encounter Summary ---
Author Organization [facility] Address [facility] [place] [address] Care Team Providers Care X Ray Developer Name Role Phone Sal uRdd MD Primary Care Provider [phone] Reason for Visit * Reason Comments Medication Refill Encounter Details Date Type Department Care Team (Late st Contact Info) Description 12/09/2015 [place] [address] Jd Evangelista MD [facility] [place] [address] Social History Tobacco Use Types Packs/Day Years [...] on filedocumented in this encounter Care Teams X Ray Developer Relationship Specialty Start Date End Date Sal Rudd MD [address] [place] [address] PCP - General 03/24/15 documented as of this encounter
--- OUTSIDE RECORDS SUMMARY | 2024-05-14 14:40 | XMS_ITS | Encounter Summary ---
[place] [address] Care Team Providers Care Door To Door Salesperson Name Role Phone Sal Rudd MD Primary Care Provider [phone] Reason for Visit * Reason Onset Date Comments Other 07/27/2015 pain Encounter Details Date Type Department Care Team (Late st Contact Info) Description 07/27/2015 Telephone [place] [id number] Irma Champion LPN Other (pain) Social History Tobacco Use Types Packs/Day Years Used Date Smoking Tobacco: Former Cigarettes Q uit: 01/13/1995 Sex and Gender Information Value Date Recorded Sex Assigned at Not on file Gender Identity Not on file Sexual Orientation Not on file documented as of this encounter Miscellaneous Notes * Telephone Encounter - Marisa Bates RN - 07/29/2015 9:50 AM EST Jd called to say he had labs and MRI done yesterday at [facility]. Relayed Dr. Evangelista's message below.We discussed the use of Tylenol 1000 mg TID. We also discussed tramadol and lidocaine patches. He would like to try the lidocaine patches. He also needs a new rx for prednisone. He is currently taking 10 mg daily. He plans to use Tylenol and lidocaine patches to manage his pain for now. Jd will call if these medications do not help him. * Telephone Encounter - Marisa Bates RN - 07/28/2015 9:40 AM EST Please let the pt know that his back pain is not caused by methotrexate, it's simply a progression of his back pain due to his underlying disc disease. Please offer him tramadol and lidoderm patch. Please also track down his outside labs since January 2015 so that I can start thinking about biologic. Thanks Jd Called Jd and left message asking him to call back and have filing writer paged so we can discuss 's response above. * Telephone Encounter - Irma Champion LPN - 07/27/2015 1:13 PM EST Jd calls the nursing line and states he is in a lot of pain in his back more now than before and has been sine he has been taking the Methotrexate. Called and spoke with Jd and he said he is in extreme pain in his mid back to below his spine and he has telegraphic pain on the right side where the lump is. Pain scale is 10/10 and he is on Prednisone 5 mg. He has been using Icy hot on his back with some relief and once it wears off it begins to hurt again. He is not on any pain meds nor does he take any OTC meds for pain. Jd denies fevers, swelling and or redness. He feels like his joints are drying out. He said he hasn't felt this bad until he took the Methotrexate which he started in May. Message forwarded to Dr. Evangelista. documented in this encounter Plan of Treatment Not on file documented as of this encounter Visit Diagnoses Not on filedocumented in this encounter Care Teams Door To Door Salesperson Relationship Specialty Start Date End Date Sal Rudd MD [address] [place] [address] PCP - General 03/24/15 documented as of this encounter
--- OUTSIDE RECORDS SUMMARY | 2024-05-14 14:40 | XMS_ITS | Encounter Summary ---
Author Organization [facility] Address [facility] [place] [address] Care Team Providers Care No Experience Name Role Phone Sal Rudd MD Primary Care Provider [phone] Encounter Details Date Type Department Care Team (Late st Contact Info) Description 07/29/2015 - 07/29/2015 11:59 PM [facility] Encounter Radiology Library at [facility] [place] [address] [facility] Discharge Disposition: Home Social History Tobacco Use Types Packs/Day Years Used Date Smoking Tobacco: Former Cigarettes Q uit: 01/13/1995 Sex and Gender Information Value Date Recorded Sex Assigned at Not on file Gender Identity Not on file Sexual Orientation Not on file documented as of this encounter Medications at Time of Discharge Medication Sig Dispensed Refills Start Date End Date lidocaine (LIDODERM) 5 % Adhesive Patch, Medicated Place 1 patch onto the skin every 12 hours. 30 patch 2 07/29/2015 predniSONE (DELTASONE) 5 mg Tablet Take 2 tablets by mouth daily. 60 tablet 3 07/29/2015 methotrexate 2.5 mg Tablet Take 6 tablets by mouth once a week. 32 tablet 2 07/12/2015 ACETAMINOPHEN/DIPHENHYD RAMINE (TYLENOL PM ORAL) Take by mouth. losartan (COZAAR) 50 mg tablet 50MG, PO, Once daily 12/21/2008 ferrous gluconate 324 mg (37.5 mg iron) Tablet Take 1 tablet by mouth 2 times daily. 60 tablet 3 03/24/2015 07/30/2015 folic acid (FOLVITE) 1 mg Tablet Take 1 tablet by mouth daily. 60 tablet 3 03/24/2015 12/08/2015 cyclobenzaprine (FLEXERIL) 5 mg Tablet Take 1 tablet by mouth nightly. 30 tablet 3 03/24/2015 07/30/2015 documented as of this encounter Plan of Treatment Not on file documented as of this encounter Procedures Procedure Name Priority Date/Time Associated Diagnosis Comments FILM LIBRARY STORAGE ONLY MR SPINE Routine 07/29/2015 12:00 AM EST Pain documented in this encounter Results * Film Library- Storage only MR Spine (07/29/2015 12:00 AM EST) Narrative [facility] [place] - 07/29/2015 3:55 PM EST See PACS for result report. Dr Reyes [facility] FILM LIBRARY ORD ERABLES [place], [place] documented in this encounter Visit Diagnoses Diagnosis Pain Generalized pain documented in this encounter Care Teams No Experience Relationship Specialty Start Date End Date Sal Rudd MD [address] [place] [address] PCP - General 03/24/15 documented as of this encounter
--- OUTSIDE RECORDS SUMMARY | 2024-05-14 14:40 | XMS_ITS | Encounter Summary ---
Author Organization [facility] Address [facility] [place] [address] Care Team Providers Care Slab Conditioner Supervisor Name Role Phone Sal Rudd MD Primary Care Provider [phone] Encounter Details Date Type Department Care Team (Late st Contact Info) Description 07/12/2015 Orders [place] [address] Jd Evangelista MD [facility] [place] [address] Social History Tobacco Use Types Packs/Day Years [...] on filedocumented in this encounter Care Teams Slab Conditioner Supervisor Relationship Specialty Start Date End Date Sal Rudd MD [address] [place] [address] PCP - General 03/24/15 documented as of this encounter
--- OUTSIDE RECORDS SUMMARY | 2024-05-14 14:40 | XMS_ITS | Encounter Summary ---
Author Organization [facility] Address [facility] [place] [address] Care Team Providers Care Collaborative Physician Name Role Phone Sal uRdd MD Primary Care Provider [phone] [phone] Reason for Visit * Reason Comments Medication Refill Encounter Details Date Type Department Care Team (Late st Contact Info) Description 07/30/2015 [place] [address] dJ Evangelista MD [facility] [address] [place] [address] Social History Tobacco Use Types Packs/Day Years [...] on filedocumented in this encounter Care Teams Collaborative Physician Relationship Specialty Start Date End Date Sal Rudd MD [address] [place] [address] PCP - General 03/24/15 documented as of this encounter
--- OUTSIDE RECORDS SUMMARY | 2024-05-14 14:40 | XMS_ITS | Encounter Summary ---
[place] [address] Care Team Providers Care Lead Pl Sql Developer Name Role Phone Sal Rudd MD Primary Care Provider [phone] [phone] Reason for Visit * Reason Onset Date Comments Other 06/04/2015 cx appt Encounter Details Date Type Department Care Team (Late st Contact Info) Description 06/04/2015 [place] [address] Marisa Bates RN Other (cx appt) Social History Tobacco Use Types Packs/Day Years Used Date Smoking Tobacco: Former Cigarettes Q uit: 01/13/1995 Sex and Gender Information Value Date Recorded Sex Assigned at Not on file Gender Identity Not on file Sexual Orientation Not on file documented as of this encounter Miscellaneous Notes * Telephone Encounter - Marisa Bates RN - 06/04/2015 2:31 PM EDT Jd is calling to cancel his 06/07/[address] Evangelista. He has only been on the methotrexate for two weeks. He did not start it right away because he had things to do on the weekend and he works during the week. The first two weeks have been fine and he is not having any side effects. Told him we will reschedule the appointment for a couple of months from now. documented in this encounter Plan of Treatment Not on file documented as of this encounter Visit Diagnoses Not on filedocumented in this encounter Care Teams Lead Pl Sql Developer Relationship Specialty Start Date End Date Sal Rudd MD [address] [place] [address] PCP - General 03/24/15 documented as of this encounter
--- OUTSIDE RECORDS SUMMARY | 2024-05-14 14:40 | XMS_ITS | Encounter Summary ---
Author Organization [facility] Address [facility] [place] [address] Care Team Providers Care Sharepoint Engineer Name Role Phone Sal Rudd MD Primary Care Provider [phone] [phone] Reason for Visit * Reason Comments Medication Refill Encounter Details Date Type Department Care Team (Late st Contact Info) Description 07/28/2015 [place] [address] Jd Evangelista MD [facility] [place] [address] Social History Tobacco Use Types Packs/Day Years [...] on filedocumented in this encounter Care Teams Sharepoint Engineer Relationship Specialty Start Date End Date Sal Rudd MD [address] [place] [address] PCP - General 03/24/15 documented as of this encounter
--- OUTSIDE RECORDS SUMMARY | 2024-05-14 14:40 | XMS_ITS | Encounter Summary ---
[place] [address] Care Team Providers Care Bindery Library Technical Assistant Name Role Phone Sal Rudd MD Primary Care Provider [phone] [phone] Reason for Visit * Reason Onset Date Comments Other 11/09/2015 prednisone Encounter Details Date Type Department Care Team (Late st Contact Info) Description 11/09/2015 [place] [address] Marisa Bates RN Other (prednisone) Social History Tobacco Use Types Packs/Day Years Used Date Smoking Tobacco: Former Cigarettes Q uit: 01/13/1995 Sex and Gender Information Value Date Recorded Sex Assigned at Not on file Gender Identity Not on file Sexual Orientation Not on file documented as of this encounter Miscellaneous Notes * Telephone Encounter - Marisa Bates RN - 11/10/2015 8:49 AM EDT He was the one who told me he had a history of scalp psoriasis. ??In addition, his CRP was elevatedwhen he first saw me, and his CRP has since returned to normal following treatment. ??It very common for pts to feel better when they are on antibiotics because infection often worsens joint pain. ? Thanks ? Jd ? * Telephone Encounter - Marisa Bates RN - 11/10/2015 8:15 AM EDT Did he resume methotrexate? ??If he has resumed methotrexate and is on 5 mg prednisone and he is doing well, he can try to stop prednisone and see what happens. ??I have no objection to that. ? Thanks ? Jd Called Jd to relay Dr. Evangelista's message above. Jd has not resumed methotrexate and does notplan to. He does not think it is the correct medication for me. He did note that when on the Z pack he felt wonderful. He said he had no joint pain and the pimples on his scalp cleared up. They have not returned so far. He says this has happened in the past on other antibiotics. He also notes he does not have psoriasis, he says he has never had patches on his skin. Jd plans to stop the prednisone as of today. Told him message will be sent to Dr. Evangelista to let him know. * Telephone Encounter - Marisa Bates RN - 11/09/2015 1:31 PM EDT Jd returned call. He is doing well. He is asking to decrease prednisone. Asked him if he continues to take [address] Evangelista's last two notes indicate. Jd says no. He says on 07/12/15Dr. Evangelista told him he could decrease to 5 mg prednisone daily. Jd has been on 5 mg since 07/13/15. Told Jd Dr. Evangelista's note does not indicate this. Jd says that Dr. Evangelista told him he couldtry decreasing the dose, but he did not expect him to do well on 5 mg prednisone. Told Jd message will be sent to Dr. Evangelista for instructions on how to taper off the prednisone. * Telephone Encounter - Marisa Bates RN - 11/09/2015 11:48 AM EDT Jd called and left message that he would like to decrease his prednisone. He is currently on 10 mg daily. Called Jd back and left message asking him to call back and have literary writer paged so we can discuss further. documented in this encounter Plan of Treatment Not on file documented as of this encounter Visit Diagnoses Not on filedocumented in this encounter Care Teams Bindery Library Technical Assistant Relationship Specialty Start Date End Date Sal Rudd MD [address] [place] [address] PCP - General 03/24/15 documented as of this encounter
--- OUTSIDE RECORDS SUMMARY | 2024-05-14 14:40 | XMS_ITS | Encounter Summary ---
[place] [address] Care Team Providers Care Lock And Dam Equipment Repairer Name Role Phone Sal Rudd MD Primary Care Provider [phone] Reason for Visit * Reason Onset Date Comments Other 10/18/2015 update Encounter Details Date Type Department Care Team (Late st Contact Info) Description 10/18/2015 Tele[place] [id number] Marisa Bates RN Other (update) Social History Tobacco Use Types Packs/Day Years Used Date Smoking Tobacco: Former Cigarettes Q uit: 01/13/1995 Sex and Gender Information Value Date Recorded Sex Assigned at Not on file Gender Identity Not on file Sexual Orientation Not on file documented as of this encounter Miscellaneous Notes * Telephone Encounter - Marisa Bates RN - 10/19/2015 1:09 PM EST Called Jd and left message that a second Z pack was sent to pharmacy. Asked him to call back if he is still not feeling better after he finishes it. * Telephone Encounter - Marisa Bates RN - 10/19/2015 10:49 AM EST Jd called and left second message requesting a second Z pack. * Telephone Encounter - Marisa Bates RN - 10/18/2015 11:21 AM EST Jd called and left message that he completed Z pack Dr. Evangelista gave him on 10/12/15 for his sinusitis, but he is still not better. He is requesting a second Z pack. documented in this encounter Plan of Treatment Not on file documented as of this encounter Visit Diagnoses Not on filedocumented in this encounter Care Teams Lock And Dam Equipment Repairer Relationship Specialty Start Date End Date Sal Rudd MD [address] [place] [address] PCP - General 03/24/15 documented as of this encounter
--- OUTSIDE RECORDS SUMMARY | 2024-05-14 14:40 | XMS_ITS | Encounter Summary ---
[place] [address] Care Team Providers Care Neurosurgical Nurse Name Role Phone Sal Rudd MD Primary Care Provider [phone] [phone] Reason for Visit * Reason Onset Date Comments Other 09/01/2015 results Encounter Details Date Type Department Care Team (Late st Contact Info) Description 09/01/2015 Telephone [place] [id number] Marisa Bates RN Other (results) Social History Tobacco Use Types Packs/Day Years Used Date Smoking Tobacco: Former Cigarettes Q uit: 01/13/1995 Sex and Gender Information Value Date Recorded Sex Assigned at Not on file Gender Identity Not on file Sexual Orientation Not on file documented as of this encounter Miscellaneous Notes * Telephone Encounter - Marisa Bates RN - 09/01/2015 9:14 AM EST Called Jd and relayed Dr. Evangelista's message below. He verbalized understanding of instructions. * Telephone Encounter - Marisa Bates RN - 09/01/2015 9:14 AM EST ----- Message from Jd Evangelista MD sent at 08/31/2015 3:43 PM EST ----- Jean Cunningham, Could you please let this pt know that his labs in Jul showed vitamin D deficiency? I faxed a script for 6 + 6 weeks of weekly high dose vitamin D to his local pharmacy. Thanks Jd documented in this encounter Plan of Treatment Not on file documented as of this encounter Visit Diagnoses Not on filedocumented in this encounter Care Teams Neurosurgical Nurse Relationship Specialty Start Date End Date Sal Rudd MD [address] [place] [address] PCP - General 03/24/15 documented as of this encounter
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
--- OUTSIDE RECORDS SUMMARY | 2024-05-14 14:40 | XMS_ITS | Encounter Summary ---
Author Organization [facility] Address [facility] [place] [address] Care Team Providers Care Cloth Examiner Hand Name Role Phone Sal Rudd MD Primary Care Provider [phone] [phone] Reason for Visit * Reason Comments Follow-up Encounter Details Date Type Department Care Team (Late st Contact Info) Description 10/12/2015 10:20 AM EST Office [place] [address] Jd Evangelista MD [facility] [place] [address] Psoriasis; Psoriatic arthritis; Vitamin D deficiency; Acute recurrent maxillary sinusitis Social History Tobacco Use Types Packs/Day Years Used Date Smoking Tobacco: Former Cigarettes Q uit: 01/13/1995 Sex and Gender Information Value Date Recorded Sex Assigned at Not on file Gender Identity Not on file Sexual Orientation Not on file documented as of this encounter Last Filed Vital Signs Vital Sign Reading Time Taken Comments Blood Pressure 154/67 10/12/2015 10:23 AM EST Pulse 88 10/12/2015 10:23 AM EST Temperature 36.4 ??C (97.6 ??F) 10/12/2015 10:[address] Respiratory Rate - - Oxygen Saturation 97% 10/12/2015 10:23 AM EST Inhaled Oxygen Concentration - - Weight 88.9 kg (196 lb) 10/12/2015 10:23 AM EST Height 160 cm (5' 3) 10/12/2015 10:23 AM EST Body Mass Index 34.72 10/12/2015 10:23 AM EST documented in this encounter Patient Instructions * Patient Instructions* Jd Evangelista MD - 10/15/2015 7:25 AM EST 1) Continue daily folic acid, 1 mg. 2) Continue daily prednisone, 10 mg. 3) Continue bedtime Flexeril, 5 mg. 4) Start Z-Dwight. 5) Return to follow up in three months. documented in this encounter Progress Notes * Jd Evangelista MD - 10/12/2015 10:27 AM EST REASON FOR VISIT: Follow up for psoriasis and psoriatic arthritis. INTERVAL HISTORY: The pt was a 70-year-old male, who returned for a follow up of psoriasis and psoriatic arthritis. The pt noted that since his last visit on Jul 12, 2015, he continued to be on daily prednisone, 10 mg for immunosuppression of his psoriasis and psoriatic arthritis. He had held his methotrexate due to a recurrent sinus infection since Aug 2015. He felt that his overall joint pain and stiffness had deteriorated significantly since he held his methotrexate. Overall, the pain remained worstin his shoulders, hands, wrists, and hips. He also complained of worsening psoriasis. He tolerated prednisone without any fever, chest pain, dyspnea, nausea, dysuria, rash, blood clots, polydipsia, di zziness, or mood change. He did complain of weight gain while on prednisone. 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 FAMILY HISTORY: Mother - Congestive heart failure, hypertension; of heart disease at the age of 89. Father - Unknown. Sister - Psoriasis. Daughters #1 and #4 - Psoriasis. PHYSICAL EXAMINATION: Vitals 10/12/2015 SYSTOLIC 154 DIASTOLIC 67 PULSE 88 TEMPERATURE 97.6 Height (Nepalese) 5' 3 Height (Metric) 160 cm Weight (Nepalese) 196 lbs Weight (Metric) 88.905 kg BODY MASS INDEX 34.73 kg/m2 Pulse Oximetry 97 General - Alert, co-operative, no apparent distress, oriented x 3. HEENT - Conjunctiva pink, no sclerae icterus or malar rash; + right maxillary sinus discomfort on palpation. Neck - Supple, + decrease in range of motion on lateral rotation to the left; + posterior cervical spinal tenderness on palpation; no paraspinal tenderness on palpation and range of motion; + right submandibular lymph node enlargement on palpation. Heart - Regular rate and rhythm, normal S1 and S2; no murmurs, rubs, or gallops. Lungs - Symmetric, no respiratory distress, clear to auscultation bilaterally. Abdomen - Soft, non-tender, non-distended, bowel sound present. Back - Erect, FROM; + diffuse thoracic and lumbosacral spinal tenderness on palpation; + bilateral paraspinal tenderness on palpation. Extremities - Upper extremities: FROM of all joints; + bilateral shoulder tenderness at the acromioclavicular joint areas on palpation; + left wrist joint tenderness on palpation; + synovitis of bilateral 2nd - 3rd MCP joints with marked soft tissue swelling; + bilateral PIP joint synovitis; no joint effusion; no clubbing, cyanosis, or edema. Lower extremities: + Slight decrease in range of motion of right knee on full extension due to joint effusion; + right knee joint tenderness on palpation; no signs of synovitis or soft tissue swelling; + moderate size right joint effusion; no clubbing, cyanosis, or edema. Skin - Smooth and intact, + mild erythematous rash on scalp consistent with psoriasis; no bruises, telangiectasia on skin or at all nail margins, or sclerodactyly. Neuro - Pt was walking with a limp due to right knee pain. Psych - Affect normal. IMPRESSION: 1) [...] stiffness, which deteriorated since he started tapering prednisone and held methotrexate. He will likely need a biologic agent for additional immunosuppression. He will undergo surveillance studies to evaluate for methotrexate toxicity. Meanwhile, he will continue prednisone for now. 4) Multilevel degenerative changes [...] of the cervical and lumbar spine. He will focus on symptomatic pain control with Flexeril for now. 9) Recurrent sinusitis. The pt will start a course of Z-Dwight for his recurrent sinusitis. Meanwhile,he will hold methotrexate for now. RECOMMENDATIONS: 1) Continue daily folic acid, 1 mg. 2) Continue daily prednisone, 10 mg. 3) Continue bedtime Flexeril, 5 mg. 4) Start Z-Dwight. 5) Return to follow up in three months. Jd Evangelista MD, PhD documented in this encounter Plan of Treatment Not on file documented as of this encounter Visit Diagnoses Diagnosis Psoriasis Other psoriasis Psoriatic arthritis Psoriatic arthropathy Vitamin D deficiency Unspecified vitamin D deficiency Acute recurrent maxillary sinusitis Acute maxillary sinusitis documented in this encounter Care Teams Cloth Examiner Hand Relationship Specialty Start Date End Date Sal Rudd MD [address] [place] [address] PCP - General 03/24/15 documented as of this encounter
--- OUTSIDE RECORDS SUMMARY | 2024-05-14 14:40 | XMS_ITS | Clinical Summary ---
Author Organization [facility] Address [facility] [place] [address] Care Team Providers Care Media Traffic Manager Name Role Phone Sal Rudd MD Primary Care Provider [phone] [phone] Allergies Active Allergy Reactions Criticality Noted Date Comments Doxycycline Other (See Comments) 01/13/2015 Developed B/L Hand Blisters. Lisinopril 01/14/2015 Cough Sulfa (Sulfonamide Antibiotics) CIS - Hives Valdecoxib CIS - Hives Medications Medication Sig Dispensed Refills Start Date End Date Status losartan (COZAAR) 50 mg tablet 50MG, PO, Once daily 12/21/2008 Active ACETAMINOPHEN/DIPHE NHYDRAMINE (TYLENOL PM ORAL) Take by mouth. Active methotrexate 2.5 mg Tablet Take 6 tablets by mouth once a week. 32 tablet 2 07/12/2015 Active lidocaine (LIDODERM) 5 % Adhesive Patch, Medicated Place 1 patch onto the skin every 12 hours. 30 patch 2 07/29/2015 Active predniSONE (DELTASONE) 5 mg Tablet Take 2 tablets by mouth daily. 60 tablet 3 07/29/2015 Active Additional Information Patient taking differently: 5 mgOral DAILY, Reported on 10/12/2015 cyclobenzaprine (FLEXERIL) 5 mg Tablet Take 1 tablet by mouth nightly. 30 tablet 3 07/30/2015 Active ferrous gluconate (FERGON) 324 mg (38 mg iron) Tablet Take 1 tablet by mouth 2 times daily. 60 tablet 3 07/30/2015 Active ergocalciferol (ERGOCALCIFEROL) 50,000 unit Capsule Take 1 capsule by mouth once a week. 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, lumbosacral 02/03/2015 Hiatal hernia 02/03/2015 Immunizations Name Administration Dates Next Due Influenza Trivalent w/Preservative 06/15/2014 Influenza Vaccine, Whole 06/14/2006,06/09/2005 Pneumococcal Conjugate (Prevnar 13) 05/25/2015 Pneumococcal Polysaccharide (Pneumovax 23) 01/13 TD Adult 04/28/2004 Varicella (Varivax) LIVE 05/13/2014 Social History Tobacco Use Types Packs/Day Years Used Date Smoking Tobacco: Former Cigarettes Q uit: 01/13/1995 Sex and Gender Information Value Date Recorded Sex Assigned at Not on file Gender Identity Not on file Sexual Orientation Not on file Last Filed Vital Signs Vital Sign Reading Time Taken Comments Blood Pressure 154/67 10/12/2015 10:23 AM EST Pulse 88 10/12/2015 10:23 AM EST Temperature 36.4 ??C (97.6 ??F) 10/12/2015 10:[address] Respiratory Rate 14 03/24/2015 2:15 PM EDT Oxygen Saturation 97% 10/12/2015 10:23 AM EST Inhaled Oxygen Concentration - - Weight 88.9 kg (196 lb) 10/12/2015 10:23 AM EST Height 160 cm (5' 3) 10/12/2015 10:23 AM EST Body Mass Index 34.72 10/12/2015 10:23 AM EST Plan of Treatment Health Maintenance Due Date Last Done Comments Hepatitis C Screening 1963 Zoster vaccine (1 of 2) 1995 Advance Directive 2000 Tetanus/Diphtheria/Pertussis Vaccines (1 - Tdap) 04/29/2004 04/28/2004 Covid-19 Vaccine (1 - 2023-24 season) 2024 Influenza (Flu) vaccine (1 o f 1 - Influenza standard series) 04/13/2024 06/15/2014, 06/14/2006, 06/09/2005 Pneumoccocal Vaccine: 65+ Completed 05/25/2015, 10/2012 Care Teams Media Traffic Manager Relationship Specialty Start Date End Date Sal Rudd MD [address] [place], [place] [id number] PCP - General 03/24/15
--- OUTSIDE RECORDS SUMMARY | 2024-05-14 14:40 | XMS_ITS | Encounter Summary ---
[place] [address] Care Team Providers Care Matching Machine Operator Name Role Phone Sal Rudd MD Primary Care Provider [phone] Reason for Visit * Reason Onset Date Comments Other 08/10/2015 results Encounter Details Date Type Department Care Team (Late st Contact Info) Description 08/10/2015 Tele[place] [id number] Marisa Bates RN Other (results) Social History Tobacco Use Types Packs/Day Years Used Date Smoking Tobacco: Former Cigarettes Q uit: 01/13/1995 Sex and Gender Information Value Date Recorded Sex Assigned at Not on file Gender Identity Not on file Sexual Orientation Not on file documented as of this encounter Miscellaneous Notes * Telephone Encounter - Marisa Bates RN - 08/10/2015 3:05 PM EST His labs were either normal or pending. His MRI of the lumbar spine showed significant facet arthritis, which is probably the cause of his back pain. Management for facet arthritis is pain control + PT. Thanks Jd Called Jd and left message relaying Dr. Evangelista's response above. Asked him to call back so we can discuss further. * Telephone Encounter - Marisa Bates RN - 08/10/2015 11:50 AM EST Jd is calling to find out his lab and MRI results. He had these done at [facility] on 07/28/15. documented in this encounter Plan of Treatment Not on file documented as of this encounter Visit Diagnoses Not on filedocumented in this encounter Care Teams Matching Machine Operator Relationship Specialty Start Date End Date Sal Rudd MD [address] [place] [address] PCP - General 03/24/15 documented as of this encounter
--- OUTSIDE RECORDS SUMMARY | 2024-05-14 14:40 | XMS_ITS | Encounter Summary ---
[place] [address] Care Team Providers Care Processing Technologist Name Role Phone Sal Rudd MD Primary Care Provider [phone] Reason for Visit * Reason Onset Date Comments Other 06/28/2015 appointment Encounter Details Date Type Department Care Team (Late st Contact Info) Description 06/28/2015 Telephone [place] [phone] Marisa Bates RN Other (appointment) Social History Tobacco Use Types Packs/Day Years Used Date Smoking Tobacco: Former Cigarettes Q uit: 01/13/1995 Sex and Gender Information Value Date Recorded Sex Assigned at Not on file Gender Identity Not on file Sexual Orientation Not on file documented as of this encounter Miscellaneous Notes * Telephone Encounter - Marisa Bates RN - 06/28/2015 2:00 PM EST Jd called and left message early this morning cancelling his appointment with Dr. Evangelista today. He is ill with a stomach bug. He would like a call back to reschedule the appointment. documented in this encounter Plan of Treatment Not on file documented as of this encounter Visit Diagnoses Not on filedocumented in this encounter Care Teams Processing Technologist Relationship Specialty Start Date End Date Sal Rudd MD [address] [place] [address] PCP - General 03/24/15 documented as of this encounter
--- OUTSIDE RECORDS SUMMARY | 2024-05-14 14:40 | XMS_ITS | Encounter Summary ---
Author Organization [facility] Address [facility] [place] [address] Care Team Providers Care Clinical Admissions Manager Name Role Phone Sal Rudd MD Primary Care Provider [phone] Reason for Visit * Reason Comments Medication Refill Encounter Details Date Type Department Care Team (Late st Contact Info) Description 12/08/2015 Refill [place] [address] Jd Evangelista MD [facility] [place] [address] Social History Tobacco Use Types Packs/Day Years [...] on filedocumented in this encounter Care Teams Clinical Admissions Manager Relationship Specialty Start Date End Date Sal Rudd MD [address] [place] [address] PCP - General 03/24/15 documented as of this encounter
--- OUTSIDE RECORDS SUMMARY | 2024-05-14 14:40 | XMS_ITS | Encounter Summary ---
Author Organization [facility] [place] [address] Care Team Providers Care Tap Builder Name Role Phone Sal Rudd MD Primary Care Provider [phone] [phone] Reason for Visit * Reason Onset Date Comments Medication Refill 10/19/2015 Encounter Details Date Type Department Care Team (Late st Contact Info) Description 10/19/2015 Refill [place] [address] [facility] [place] [address] Social History Tobacco Use Types Packs/Day Years [...] on filedocumented in this encounter Care Teams Tap Builder Relationship Specialty Start Date End Date Sal Rudd MD [address] [place] [address] PCP - General 03/24/15 documented as of this encounter
--- OUTSIDE RECORDS SUMMARY | 2024-05-14 14:40 | XMS_ITS | Encounter Summary ---
Author Organization [facility] [place] [address] Care Team Providers Care Bottom Hoop Driver Name Role Phone Sal Rudd MD Primary Care Provider [phone] [phone] Reason for Visit * Reason Onset Date Comments Medication Refill 07/29/2015 Encounter Details Date Type Department Care Team (Late st Contact Info) Description 07/29/2015 [place] [address] Jd Evangelista MD [facility] [place] [address] Social History Tobacco Use Types Packs/Day Years [...] on filedocumented in this encounter Care Teams Bottom Hoop Driver Relationship Specialty Start Date End Date Sal Rudd MD [address] [place] [address] PCP - General 03/24/15 documented as of this encounter
--- OUTSIDE RECORDS SUMMARY | 2024-05-14 14:40 | XMS_ITS | Encounter Summary ---
[place] [address] Care Team Providers Care Maintenance Controller Name Role Phone Sal Rudd MD Primary Care Provider [phone] [phone] Reason for Visit * Reason Onset Date Comments Other 08/12/2015 Encounter Details Date Type Department Care Team (Late st Contact Info) Description 08/12/2015 Telephone [place] [phone] Diane Jewell RN Other Social History Tobacco Use Types Packs/Day Years Used Date Smoking Tobacco: Former Cigarettes Q uit: 01/13/1995 Sex and Gender Information Value Date Recorded Sex Assigned at Not on file Gender Identity Not on file Sexual Orientation Not on file documented as of this encounter Miscellaneous Notes * Telephone Encounter - Diane Jewell RN - 08/12/2015 10:26 AM EST Jd calls and reports that he received a call from someone in this office at 7:30 this morning.I went over the message from Dr. Evangelista and he states this was already done. Not sure who called Jd. documented in this encounter Plan of Treatment Not on file documented as of this encounter Visit Diagnoses Not on filedocumented in this encounter Care Teams Maintenance Controller Relationship Specialty Start Date End Date Sal Rudd MD [address] [place] [address] PCP - General 03/24/15 documented as of this encounter
--- OUTSIDE RECORDS SUMMARY | 2024-05-14 14:40 | XMS_ITS | Encounter Summary ---
Author Organization [facility] Address [facility] [place] [address] Care Team Providers Care Salt Machine Operator Name Role Phone Sal Rudd MD Primary Care Provider [phone] [phone] Encounter Details Date Type Department Care Team (Late st Contact Info) Description 08/31/2015 Orders [place] [address] Jd Evangelista MD [facility] RHEUMATOLOGY DEPT. [address] Social History Tobacco Use Types Packs/Day Years [...] on filedocumented in this encounter Care Teams Salt Machine Operator Relationship Specialty Start Date End Date Sal Rudd MD [address] [place] [address] PCP - General 03/24/15 documented as of this encounter
--- OUTSIDE RECORDS SUMMARY | 2024-05-14 14:40 | XMS_ITS | Encounter Summary ---
Author Organization [facility] Address [facility] [place] [address] Care Team Providers Care Dial Screw Assembler Name Role Phone Sal Rudd MD Primary Care Provider [phone] [phone] Encounter Details Date Type Department Care Team (Late st Contact Info) Description 07/23/2015 Orders [place] [address] Jd Evangelista MD [facility] [place] [address] Social History Tobacco Use Types Packs/Day Years [...] on filedocumented in this encounter Care Teams Dial Screw Assembler Relationship Specialty Start Date End Date Sal Rudd MD [address] [place] [address] PCP - General 03/24/15 documented as of this encounter
--- OUTSIDE RECORDS SUMMARY | 2024-05-14 14:41 | XMS_ITS | Encounter Summary ---
Author Organization [facility] [place] [address] Care Team Providers Care Application Development Project Manager Name Role Phone Kashmir Mercado MD Primary Care Provider [phone] Reason for Visit * Reason Comments Loss of Consciousness Encounter Details Date Type Department Care Team (Late st Contact Info) Description 01/13/2015 3:10 PM EDT - 01/13/2015 7:08 PM EDT [place] [address] Ashwini Saldana MD [facility] [place] [address] Vasovagal syncope; Neck pain; Joint pain; Chronic low back pain Discharge Disposition: Home Social History Tobacco Use Types Packs/Day Years Used Date Smoking Tobacco: Former Cigarettes Q uit: 01/13/1995 Sex and Gender Information Value Date Recorded Sex Assigned at Not on file Gender Identity Not on file Sexual Orientation Not on file documented as of this encounter Last Filed Vital Signs Vital Sign Reading Time Taken Comments Blood Pressure 129/62 01/13/2015 3:15 PM EDT Pulse 72 01/13/2015 3:29 PM EDT Temperature 36.6 ??C (97.9 ??F) 01/13/2015 3:29 PM ED T Respiratory Rate 18 01/13/2015 3:29 PM EDT Oxygen Saturation 93% 01/13/2015 3:29 PM EDT Inhaled Oxygen Concentration - - Weight - - Height - - Body Mass Index - - documented in this encounter Discharge Instructions * Discharge Instructions* Ashwini Saldana MD - 01/13/2015 6:04 PM EDT Images from the original note were not included. [facility] Fainting: After Your Visit Your Care Instructions When you faint, or pass out, you lose consciousness for a short time. A brief drop in blood flow tothe brain often causes it. When you fall or lie down, more blood flows to your brain and you regainconsciousness. Emotional stress, pain, or overheating--especially if you have been standing--can make you faint. In these cases, fainting is usually not serious. But fainting can be a sign of a more serious problem. Your doctor may want you to have more tests to rule out other causes. The treatment you need depends on the reason why you fainted. The doctor has checked you carefully, but problems can develop later. If you notice any problems ornew symptoms, get medical treatment right away. Follow-up care is a gaspar part of your treatment and safety. Be sure to make and go to all appointments, and call your doctor if you are having problems. It's also a good idea to know your test resultsand keep a list of the medicines you take. How can you care for yourself at home? ?? Drink plenty of fluids to prevent dehydration. If you have kidney, heart, or liver disease and have to limit fluids, talk with your doctor before you increase your fluid intake. When should you call for help? Call 911 anytime you think you may need emergency care. For example, call if: ?? You have symptoms of a heart problem. These may include: ?? Chest pain or pressure. ?? Severe trouble breathing. ?? A fast or irregular heartbeat. ?? Lightheadedness or sudden weakness. ?? Coughing up pink, foamy mucus. ?? Passing out. After you call 911, the trench shovel operator may tell you to chew 1 adult-strength or 2 to 4 low-dose aspirin. Wait for an ambulance. Do not try to drive yourself. ?? You have symptoms of a stroke. These may include: ?? Sudden numbness, tingling, weakness, or loss of movement in your face, arm, or leg, especially on only one side of your body. ?? Sudden vision changes. ?? Sudden trouble speaking. ?? Sudden confusion or trouble understanding simple statements. ?? Sudden problems with walking or balance. ?? A sudden, severe headache that is different from past headaches. ?? You passed out (lost consciousness) again. Watch closely for changes in your health, and be sure to contact your doctor if: ?? You do not get better as expected. Where can you learn more? Visit our health information library at [email or web address] You can also view health information on [employer], your personal patient account. Log in or sign up today. Enter [id number] in the search box to learn more about Fainting: After Your Visit. ?? [id number] [employer]. Care instructions adapted under license by [facility]. This care instruction is for use with your licensed healthcare professional. If you have questions about a medical condition or this instruction, always ask your healthcare professional. [employer] disclaims any warranty or liability for your use of this information. Content Version: 10.4.918193; Current as of: April 21, 2014 documented in this encounter Medications at Time of Discharge Medication Sig Dispensed Refills Start Date End Date ACETAMINOPHEN/DIPHENHYD RAMINE (TYLENOL PM ORAL) Take by mouth. losartan (COZAAR) 50 mg tablet 50MG, PO, Once daily 12/21/2008 predniSONE (DELTASONE) 5 mg Tablet Take 3 tablets by mouth daily. 90 tablet 3 01/13/2015 07/29/2015 documented as of this encounter ED Notes * Ashwini Saldana MD - 01/14/2015 12:17 AM EDT Chief Complaint Patient presents with ??? Loss of Consciousness HPI 69-year-old male was here to see rheumatology today, Dr Evangelista. Patient was sent for lab work, sitting getting labs with the needle in his arm she moved it to reposition it and he became clammy, sweaty, dizzy, and had a syncopal episode, was moved to a chair,unclear loss of consciousness, but was definitely confused for 30 seconds. He had nothing to eat since last night only coffee this morning. The only other times he has had syncopal episodes has been with blood draws. No focal neurologic complaints. No chest pain. No headache at this time. Patient has psoriatic arthritis, back and neck pain, rotator cuff issues, psoriasis. Only prior EKG was in August when his left arm became prickly and was ultimately diagnosed as a cervical radiculopathy. Stress test done prior to rotator cuff surgery, unremarkable. Review of systems mild headache, fatigue, occasional, swollen glands, wonders if he should getoff his blood pressure medications because his blood pressures been running low 110 to 129 systolic. No past medical history on file. No past surgical history on file. No current facility-administered medications on file prior to encounter. Current Outpatient Prescriptions on File Prior to Encounter Medication Sig Dispense Refill ??? ACETAMINOPHEN/DIPHENHYDRAMINE (TYLENOL PM ORAL) Take by mouth. ??? predniSONE (DELTASONE) 5 mg Tablet Take 3 tablets by mouth daily. 90 tablet 3 ??? losartan (COZAAR) 50 mg tablet 50MG, PO, Once daily Allergies Allergen Reactions ??? Doxycycline Other (See Comments) Developed B/L Hand Blisters. ??? Sulfa (Sulfonamide Antibiotics) CIS - Hives ??? Valdecoxib CIS - Hives No family history on file. History Social History ??? Marital Status: Spouse Name: N/A Number of Children: N/A ??? Years of Education: N/A Occupational History ??? Not on file. Social History Main Topics ??? Smoking status: Former Smoker Quit date: 01/13/1995 ??? Smokeless tobacco: Not on file ??? Alcohol Use: Not on file ??? Drug Use: Not on file ??? Sexual Activity: Not on file Other Topics Concern ??? Not on file Social History Narrative ??? No narrative on file Review of Systems All other systems reviewed and are negative. 36.6 ??C (97.9 ??F) 72 18 -- 93 % 129/62 Physical Exam Constitutional: He is oriented to person, place, and time. He appears well- developed and well-nourished. No distress. HENT: Head: Normocephalic and atraumatic. Mouth/Throat: Oropharynx is clear and moist. Eyes: Conjunctivae and EOM are normal. Pupils are equal, round, and reactive to light. Right eye exhibits no discharge. Left eye exhibits no discharge. No scleral icterus. Neck: Normal range of motion. Neck supple. Cardiovascular: Normal rate, regular rhythm and intact distal pulses. Exam reveals no gallop and nofriction rub. No murmur heard. Pulmonary/Chest: Effort normal and breath sounds normal. No respiratory distress. He has no wheezes. He has no rales. He exhibits no tenderness. Abdominal: Soft. Bowel sounds are normal. He exhibits no distension and no mass. There is no tenderness. There is no rebound and no guarding. Musculoskeletal: He exhibits no edema or tenderness. Neurological: He is alert and oriented to person, place, and time. No cranial nerve deficit. Skin: Skin is warm and dry. He is not diaphoretic. Psychiatric: He has a normal mood and affect. Procedures MDM Number of Diagnoses or Management Options Vasovagal syncope: new, needed workup Risk of Complications, Morbidity, and/or Mortality Presenting problems: moderate Diagnostic procedures: low Management options: low Patient Progress Patient progress: stable ED Course: Recent Results (from the past 24 hour(s)) COMPREHENSIVE METABOLIC PANEL (NON-FASTING) Result Value Ref Range Glucose Lvl 89 65 - 199 mg/dL BUN 15 10 - 20 mg/dL Creatinine 0.69 (*) 0.80 - 1.50 mg/dL Sodium 137 135 - 145 mmol/L Potassium 4.2 3.5 - 5.0 mmol/L Chloride 98 98 - 107 mmol/L CO2 26 22 - 31 mmol/L Anion Gap 13 5 - 15 mmol/L Calcium 9.7 8.5 - 10.5 mg/dL Total Protein 7.3 6.1 - 8.0 gm/dL Albumin 4.2 3.2 - 5.2 gm/dL AST 16 0 - 39 unit/L ALT 10 0 - 55 unit/L Alk Phos 33 (*) 40 - 120 unit/L Total Bilirubin 0.9 0.2 - 1.3 mg/dL Bili, Direct 0.2 0.0 - 0.3 mg/dL Estimated GFR >60 >=60 SEDIMENTATION RATE Result Value Ref Range Sed Rate 15 0 - 15 mm/hr IRON AND TIBC Result Value Ref Range Iron 27 (*) 45 - 160 mcg/dL TIBC 333 250 - 450 mcg/dL Iron Saturation 8 (*) 20 - 50 % FERRITIN Result Value Ref Range Ferritin 246 30 - 400 ng/mL FOLATE, SERUM Result Value Ref Range Folate Lvl 19.0 4.6 - 34.8 ng/mL VITAMIN B12 Result Value Ref Range Vitamin B-12 420 207 - 974 pg/mL VIT D TOTAL EVALUATION Result Value Ref Range 25-OH Vit D Total 37 30 - 100 ng/mL TSH Result Value Ref Range TSH 1.38 0.27 - 4.20 mcIU/mL HIGH SENSITIVITY CRP Result Value Ref Range CRP High Sens 13.2 RHEUMATOID FACTOR, QUANT Result Value Ref Range RF 10 <=14 IU/mL ANTI-CYCLIC CITRULLINATED PEPTIDE AB Result Value Ref Range Anti-Cyc Cit Peptide <8.0 <=17.0 unit/mL HLA-B27 Result Value Ref Range WBC 11.3 (*) 4.0 - 10.0 x10(3)/mcL HEMOGRAM Result Value Ref Range WBC 11.3 (*) 4.0 - 10.0 x10(3)/mcL RBC 4.43 (*) 4.63 - 6.08 x10(6)/mcL Hemoglobin 13.2 (*) 13.7 - 17.5 gm/dL Hematocrit 39.9 (*) 40.0 - 51.0 % MCV 90.1 79.0 - 92.0 fL MCH 29.8 25.6 - 32.2 pg MCHC 33.1 32.0 - 36.5 gm/dL Platelets 289 145 - 370 x10(3)/mcL RDWSD 46.3 (*) 35.0 - 46.0 fL RDWCV 14.1 10.9 - 14.4 % MPV 10.9 9.0 - 12.0 fL DIFFERENTIAL, AUTOMATED Result Value Ref Range Neutrophils % 71.9 Neutr Abs (ANC) 8.12 (*) 1.50 - 6.30 x10(3)/mcL Lymphocytes % 18.8 Lymphocytes Abs 2.1 1.0 - 3.6 x10(3)/mcL Monocytes % 7.0 Monocyte Abs 0.8 0.2 - 1.0 x10(3)/mcL Eosinophils % 2.0 Eosinophils Abs 0.2 0.0 - 0.5 x10(3)/mcL Basophils % 0.1 Basophils Abs 0.0 0.0 - 0.2 x10(3)/mcL Immature Gran % 0.20 Vaishnavi Gran Abs 0.02 0.00 - 0.05 x10(3)/mcL POCT GLUCOSE Result Value Ref Range POC Glucose 105 65 - 199 mg/dL URINE HOLD Result Value Ref Range Urine Hold Sample in lab. 69-year-old male with a vasovagal syncopal episode in the middle of having a blood draw. Patient given 64 ounces of water, was observed, felt well, was eager to be discharged Ashwini Saldana MD 01/14/15 0026 documented in this encounter Miscellaneous Notes * ED Triage - Haritha Burnett RN - 01/13/2015 3:27 PM EDT Pt was getting his blood drawn today and has been fasting all day and had a syncopal episode lasting a few moment and came too. Pt was diaphoretic and pale had an episode of vomiting. Pt was given juice and crackers and color has improved and pt states he feels better. Pt states he is a little fuzzy but he is no longer nauseous. ABCs' intact resp even and unlabored skin warm dry and intact. Pt denies CP or SOB. Pt states he is hungry documented in this encounter Plan of Treatment Not on file documented as of this encounter Procedures Procedure Name Priority Date/Time Associated Diagnosis Comments XR LUMBAR SPINE 2 OR 3 VIEWS Routine 01/13/2015 6:39 PM EDT Chronic low back pain XR HANDS MIN 3 VIEWS BILAT Routine 01/13/2015 6:39 PM EDT Joint pain XR CERVICAL SPINE 2 OR 3 VIEWS Routine 01/13/2015 6:38 PM EDT Neck pain EKG 12-LEAD STAT 01/13/2015 3:40 PM EDT POCT GLUCOSE Routine 01/13/2015 3:20 PM EDT documented in this encounter Results * XR lumbar spine 2 or 3 views (01/13/2015 6:39 PM EDT) Anatomical Region Laterality Modality L-spine N/A Radiographic Shari ging 01/13/2015 6:39 PM EDT Impressions 01/14/2015 3:56 AM EDT IMPRESSION: Multilevel degenerative changes of the lower thoracic and lumbar spine as above. Narrative 01/14/2015 3:56 AM EDT EXAMINATION: LSPINE 2 OR 3 VIEWS CLINICAL HISTORY: worsening low back pain in a pt with extensive family history of psoriasis TECHNIQUE: 2 views COMPARISON: None FINDINGS: There are 5 nonrib-bearing lumbar type vertebrae. There are multilevel degenerative changes, most notable at the lower thoracic spine and upper lumbar spine involving T10-T11, T11-T12, T12-L1 and L1-L2. There is facet arthropathy at the lower levels, most severe at L4-L5 and L5-S1. Degenerative changes of the bilateral sacroiliac joints are noted. Calcification of the abdominal aorta is partially visualized. Changes of lower anterior abdominal hernia repair with mesh are noted. Procedure Note Kenzie Palmer MD - 01/14/2015 EXAMINATION: LSPINE 2 OR 3 VIEWS CLINICAL HISTORY: worsening low back pain in a pt with extensive familyhistory of psoriasis TECHNIQUE: 2 views COMPARISON: None FINDINGS: There are 5 nonrib-bearing lumbar type vertebrae. There are multilevel degenerative changes, most notable at the lower thoracic spine and upperlumbar spine involving T10-T11, T11-T12, T12-L1 and L1-L2. There is facetarthropathy at the lower levels, most severe at L4-L5 and L5-S1. Degenerative changesof the bilateral sacroiliac joints are noted. Calcification of the abdominalaorta is partially visualized. Changes of lower anterior abdominal hernia repairwith mesh are noted. IMPRESSION IMPRESSION: Multilevel degenerative changes of the lower thoracic and lumbar spine asabove. Jd Evangelista MD IMG DX ORDERABLES * XR Bilateral Hands Minimum 3 Views (01/13/2015 6:39 PM EDT) Anatomical Region Laterality Modality Hand Bilateral Radiographic Shari ging 01/13/2015 6:39 PM EDT Impressions 01/14/2015 8:17 AM EDT IMPRESSION: Mild degenerative changes above. Narrative 01/14/2015 8:17 AM EDT EXAMINATION: BILATERAL HANDS MIN 3 VIEWS CLINICAL HISTORY: bilateral hand pain and swelling in a pt with extensive family history of psoriasis TECHNIQUE: 4 radiographs bilateral hands COMPARISON: None FINDINGS: Mild joint space narrowing, most prominent at the RIGHT third and fourth distal interphalangeal joints, RIGHT third metacarpophalangeal joint, LEFT fourth distal interphalangeal joint, and LEFT third and fourth metacarpophalangeal joints. Tiny marginal osteophyte is noted at the RIGHT second and fifth distal phalanges, and LEFT distal fifth phalanx. No fracture or dislocation is seen. Alignment appears grossly within normal limits. No suspicious, aggressive, or destructive lesion identified. No osteolytic or erosive process is seen. No evidence of periostitis. Cortical margins appear sharp. Soft tissues appear unremarkable. No radiopaque foreign body seen. Procedure Note Jose Kumar MD - 01/14/2015 EXAMINATION: BILATERAL HANDS MIN 3 VIEWS CLINICAL HISTORY: bilateral hand pain and swelling in a pt with extensivefamily history of psoriasis TECHNIQUE: 4 radiographs bilateral hands COMPARISON: None FINDINGS: Mild joint space narrowing, most prominent at the RIGHT third and fourthdistal interphalangeal joints, RIGHT third metacarpophalangeal joint, LEFTfourth distal interphalangeal joint, and LEFT third and fourthmetacarpophalangeal joints. Tiny marginal osteophyte is noted at the RIGHT second and fifthdistal phalanges, and LEFT distal fifth phalanx. No fracture or dislocation isseen. Alignment appears grossly within normal limits. No suspicious, aggressive,or destructive lesion identified. No osteolytic or erosive process is seen.No evidence of periostitis. Cortical margins appear sharp. Soft tissuesappear unremarkable. No radiopaque foreign body seen. IMPRESSION IMPRESSION: Mild degenerative changes above. Jd Evangelista MD IMG DX ORDERABLES * XR Cervical Spine 2 or 3 views (01/13/2015 6:38 PM EDT) Anatomical Region Laterality Modality C-spine N/A Radiographic Shari ging 01/13/2015 6:38 PM EDT Impressions 01/14/2015 3:52 AM EDT IMPRESSION: Multilevel degenerative changes of the cervical spine, most evident at C5-C6 and C6-C7. Narrative 01/14/2015 3:52 AM EDT EXAMINATION: Cervical Spine 2 or 3 Views CLINICAL HISTORY: worsening neck pain in a pt with extensive history of psoriasis TECHNIQUE: 2 views COMPARISON: None FINDINGS: The cervical spine is visualized from the cranial base to the superior endplate of T1. Alignment is normal. There are multilevel degenerative changes with disc osteophyte complexes and associated disc space narrowing, most evident at C5-C6 and C6-C7. No acute fracture. Prevertebral soft tissues are normal. Procedure Note Kenzie Palmer MD - 01/14/2015 EXAMINATION: Cervical Spine 2 or 3 Views CLINICAL HISTORY: worsening neck pain in a pt with extensive history of psoriasis TECHNIQUE: 2 views COMPARISON: None FINDINGS: The cervical spine is visualized from the cranial base to the superiorendplate of T1. Alignment is normal. There are multilevel degenerative changes withdisc osteophyte complexes and associated disc space narrowing, most evident atC5-C6 and C6-C7. No acute fracture. Prevertebral soft tissues are normal. IMPRESSION IMPRESSION: Multilevel degenerative changes of the cervical spine, most evident atC5-C6 and C6-C7. Jd Evangelista MD IMG DX ORDERABLES * EKG 12 Lead (01/13/2015 3:40 PM EDT) Ventricular rate 72 BPM MUSE SYSTEM Atrial Rate 72 BPM MUSE SYSTEM P-R Interval 168 ms MUSE SYSTEM QRS Duration 88 ms MUSE SYSTEM Q-T Interval 406 ms MUSE SYSTEM QTC Calculated (Bezet) 444 ms MUSE SYSTEM Calculated P Gardiner 62 degrees MUSE SYSTEM Calculated R Gardiner 46 degrees MUSE SYSTEM Calculated T Gardiner 46 degrees MUSE SYSTEM INTERPRETATION Normal sinus rhythm Normal ECG When compared with ECG of 14-DEC-1993 15:29, No significant change was found Confirmed by MD VALLEJO JOHN ([id number]) on 01/14/2015 3:14:41 PM MUSE SYSTEM 01/13/2015 3:40 PM EDT 01/14/2015 3:14 PM EDT Ashwini Saldana MD ECG ORDERABLES MUSE SYSTEM * POCT Glucose (01/13/2015 3:20 PM EDT) Glucose, POC 105 65 - 199 mg/dL [facility] Comment: Supplemental ranges: <140 mg/dL before meals <180 mg/dL all other times of the day Blood specimen (specimen) 01/13/2015 3:20 PM EDT 01/13/2015 3:20 PM EDT Md Emergency Dept POINT OF CARE TEST ORDERABLES Performing Organization Address [facility] de Phone Number [facility] documented in this encounter Visit Diagnoses Diagnosis Vasovagal syncope Syncope and collapse Neck pain Cervicalgia Joint pain Pain in joint, site unspecified Chronic low back pain Lumbago documented in this encounter Care Teams Application Development Project Manager Relationship Specialty Start Date End Date Kashmir Mercado MD [address] [place] [address] PCP - General 12/04/14 03/23/15 documented as of this encounter
--- OUTSIDE RECORDS SUMMARY | 2024-05-14 14:41 | XMS_ITS | Encounter Summary ---
Author Organization [facility] Address [address] [place] [address] Care Team Providers Care Biodiesel Production Technician Name Role Phone Sal Rudd MD Primary Care Provider [phone] Encounter Details Date Type Department Care Team (Late st Contact Info) Description 02/05/2020 Lab Requisition [facility] Laboratory Medicine - [address] [address] Outr Resulting Lab, Provider Social History Tobacco Use Types Packs/Day Years Used Date Smoking Tobacco: Never Assessed Sex and Gender Information Value Date Recorded Sex Assigned at Not on file Gender Identity Not on file Sexual Orientation Not on file documented as of this encounter Plan of Treatment Not on file documented as of this encounter Procedures Procedure Name Priority Date/Time Associated Diagnosis Comments HEPATITIS C AB W REFLEX TO HCV RNA BY PCR Routine 02/05/2020 10:35 EDT documented in this encounter Results * HEPATITIS C AB W REFLEX TO HCV RNA BY PCR (02/05/2020 10:35 EDT) Hep C Antibody Negative Negative 02/06/2020 11:33 EDT [facility] Blood VENOUS BLOOD / Unknown 02/05/2020 10:35 EDT 02/05/2020 17:19 EDT Provider Outr Resulting Lab CHEMISTRY & BLOOD GAS ORDERABLES [facility] [address] [place] [address] documented in this encounter Visit Diagnoses Not on filedocumented in this encounter Care Teams Biodiesel Production Technician Relationship Specialty Start Date End Date Sal Rudd MD [address] [place] [id number] PCP - General 02/16/15 documented as of this encounter
--- OUTSIDE RECORDS SUMMARY | 2024-05-14 14:41 | XMS_ITS | Patient Health Record ---
Author Organization [facility] Address [address], [place] [id number] Care Team Providers Care Silk Screener Name Role Phone Sal Rudd MD Primary Care Provider Allergies Allergen (clinical drug ingredient) Drug/Non Drug Allergy documented on EMR Reaction Allergy Type Onset Date Status Lactose GI Upset Drug Allergy Active lisinopril Lisinopril Cough Drug Allergy Activ e Seasonal Runny nose, watery eyes Drug Allergy Active doxycycline Doxycycline Bilateral Blisters on Hands Drug Allergy Active Sulfa Rash Drug Allergy Active Bextra Rash Drug Allergy Active Results Component Value Reference Range Notes TICK BORNE DISEASE ACUTE MOL ECULAR PANEL Reviewed date:02/08/2024 11:11:50 AM Interpretation:Not detected Performing Lab:NL1, [facility] [address] Hazel Morin M.D. Notes/Report: Received Date: ANAPLASMA PHAGOCYTOPHILUM DNA, QL REAL TIME PCR NOT DETECTED NOT DETECTED This test was developed and its analytical performance characteristics have been determined by [facility]. It has not been cleared or approved by the FDA. This assay has been validated pursuant to the CLIA regulations and is used for clinical purposes. BABESIA MICROTI DNA, REAL TIME PCR NOT DETECTED NOT DETECTED This test was developed and its analytical performance characteristics have been determined by [facility]. It has not been cleared or approved by the FDA. This assay has been validated pursuant to the CLIA regulations and is used for clinical purposes. BORRELIA MIYAMOTOI DNA, QL REAL TIME PCR NOT DETECTED NOT DETECTED This test detects but does not distinguish between B. miyamotoi and B. hermsii. This test was developed and its analytical performance characteristics have been determined by [facility]. It has not been cleared or approved by the FDA. This assay has been validated pursuant to the CLIA regulations and is used for clinical purposes. EHRLICHIA CHAFFEENSIS DNA REAL TIME PCR NOT DETECTED NOT DETECTED This test was developed and its analytical performance characteristics have been determined by [facility]. It has not been cleared or approved by the FDA. This assay has been validated pursuant to the CLIA regulations and is used for clinical purposes. BORRELIA SPECIES DNA, QL VIRAL L TIME PCR NOT DETECTED NOT DETECTED This test was developed and its analytical performance characteristics have been determined by [facility]. It has not been cleared or approved by the FDA. This assay has been validated pursuant to the CLIA regulations and is used for clinical purposes. For additional information, please refer to https://education.careersmore/faq/vcv211 (This link is being provided for informational/ educational purposes only.) COMMENT A negative result does not exclude Borrelia infection as the concentration of the organism in blood may be low or non-existent in patients with Lyme disease, and may depend on timing of specimen collection from onset of symptoms. Clinical correlation is recommended and additional studies such as serologic testing may be indicated. SED RATE BY MODIFIED ELIU CUEVAS Reviewed date:03/05/2024 12:09:59 PM Interpretation: Performing Lab:[facility], [facility] [place], [place] [address] Hazel Morin M.D. Notes/Report: Received Date: NON-FASTING SED RATE BY MODIFIED BRYAN 11 < OR = 20 mm/h Reason For Referral Reason FAXED TO [facility] 10/05/23 LP. eval and treat for knee pain Please contact our office within 7 days to notify LR of scheduled appointment Diagnosis 1 Pain in left knee (M 25.562) Referral Organization [facility] Fernie Hanson Referring Provider First Name Sal Referring Provider Last Name Tobin Daigle Referring Provider Speciality Family Med matt Referred Provider [facility] Orthop edic Surgery, [place] Referred Provider Specialty Orthopedic S urgery General Notes Kavitha Hassan 09/14 11:00:50 AM >FAXED TO [facility], Kavitha Hassan 10/05/2023 01:25:34 PM >FAXED TO [facility] Referral Priority Routine Reason Eval for neck and ba ck pain faxed 10/23/2023 AC Diagnosis 1 Neck pain (M54.2) Referral Organization [facility] Fernie Hanson Referring Provider First Name Sal Referring Provider Last Name Tobin Daigle Referring Provider [facility] matt Referred Provider [facility] Orthop edic Surgery, [place] Referred Provider Specialty Orthopedic S urgery Referral Priority Routine Reason APPT ALPINE 02/29/24 [place] FAXED TO [facility] 10/23/23 LP. eval for neck and back pain Please contact our office within 7 days to notify [facility] of scheduled appointment Diagnosis 1 Neck pain (M54.2) Diagnosis 2 Back pain, unspecifi ed back location, unspecified back pain laterality, unspecified chronicity (M54.9) Referral Organization [facility] Fernie Hanson Referring Provider First Name Sal Referring Provider Last Name Tobin Daigle [facility], Pain Management Referred Provider Specialty Pain Medicin e General Notes Kavitha Hassan 10/11 03:23:43 PM [facility] 11/05/2023 11:27:35 AM >PER [facility] PATIENT IS SCHEDULED FOR 02.29.2024 AT 9AM. UPDATED # OF VISITS AND REFEAXED TO [facility]. Referral Priority Routine Referral Appointment Date 02/29/2024 Medications Medication SIG (Take, Route, Frequency, Duration) Notes Start Date End Date Status Omeprazole 20 MG 1 capsule 30 minutes before morning meal Orally Once a day for 90 days Active Centrum Silver Ultra Mens 1 Tablet 1 Tablet Orally Once a day Active Meloxicam 15 MG 1 tablet Orally Once a day for 30 days Active Tylenol PM 500-25 MG 1 tablet at bedtime as needed Orally Once a day Active Tumeric 1 capsule Orally Twi ce a day 1500mg Active Aspirin 81 MG 1 tablet Orally ever y other day prn Active Losartan Potassium 50 MG TAKE TWO TABLET S BY MOUTH EVERY DAY for 90 Active Immunizations Vaccine Route Administration Date Status Comme nts Zostavax [facility] [id number] Unknown 05/13/2014 Administered TDaP Adult [facility] [id number] Unknown 11/24/2011 Administered Prevnar PCV 13 Adult 65+ Purchased [id number] Unknown 07/01/2018 Administered Morton Pneumovax [facility] [id number] Unknown 08/13/2005 Administered Influenza Adult FluBlok high dose PURCHASED Unknown 07/01/2018 Administered [place] Influenza Adult FluBlok high dose PURCHASED IM Intramuscular 06/20/2019 Administered Influenza Adult FluBlok high dose PURCHASED IM Intramuscular 05/19/2020 Administered Influenza Adult FluBlok high dose PURCHASED IM Intramuscular 05/16/2021 Administered Influenza Adult FluBlok high dose PURCHASED IM Intramuscular 06/07/2022 Administered INFLUENZA 18 YRS TO 64 YRS OLD-STATE SUPPLIED IM Intramuscular 05/18/2015 Administered INFLUENZA 18 YRS TO 64 YRS OLD-STATE SUPPLIED IM Intramuscular 07/14/2016 Administered INFLUENZA 18 YRS TO 64 YRS OLD-STATE SUPPLIED IM Intramuscular 06/08/2017 Administered COVID-19 Pfizer BIVALENT Age 12 and older IM Intramuscular 06/29/2022 Administered COVID-19 Moderna 23917 Unknown 09/16/2020 Administered COVID-19 Moderna 27094 Unknown 10/20/2020 Administered COVID-19 Moderna [id number] Unknown 07/26/2021 Administered COVID-19 Moderna [id number] Unknown 03/21/2022 Administered Social History Tobacco Use: Social History Observation Description Date Details (start date - stop date) Never Smoker NA - NA Sex Assigned At : Social History Observation Description Sex Assigned At Male OTHER TOBACCO USE: Question Answer Notes Are you an other tobacco user? No PRAPARE Question Answer Notes Date Completed/Updated: 01/10/2019 What is your current housing situation? I have h ousing Are you worried about losing your housing? No What is the highest level of school that you have finished? Less than a high school degree What is your current work situation? Oth erwise unemployed but not seeking work (ex. 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 Check all that apply I do not have problems meeting my needs Has lack of transportation k ept you from medical appointments, meetings, work or from getting things needed for daily living? No How often do you see or talk to people that you care about and feel close to? (For example: talking to friends on the phone, visiting friends or family, going to congregation or club meetings) More than 5 times a week How stressed are you? Stress is when someone feels tense, nervous, anxious, or can't sleep at night because their mind is troubled A little bit In the past year have you sp ent more than 2 nights in a row in a intermediate, senior living, correction center, or juvenile correctional facility? No Are you a refugee? No What country are you from? [place] Do you feel physically and e motionally safe where you currently live? Yes In the past year, have you b een afraid of your partner or ex-partner? 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) Active confirmed Problem 419383622 Annual physical exam (Z00.00) Active confirmed Problem Gastroesophageal reflux disease (157866992) GERD (gastroesophageal reflux disease) (K21.9) Active confirmed Problem 295228525 Obesity (E66.9) Active confirmed Problem 323339325 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) Active confirmed Problem 847141284 Hypertriglycerid emia (E78.1) Active confirmed Problem 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 Problem 2011574387324 Benign prostatic hyperplasia with lower urinary tract symptoms (N40.1) Active confirmed Problem 273829482862243186 History of CO VID-19 (Z86.16) 2021 Active confirmed Vital Signs Heart Rate 66 BPM 04/02/2024 Temperature 98.1 degrees Fahrenheit 04/02/2024 Respiratory Rate 18 /min 03/04/2024 Blood pressure diastolic 70 mmHg 03/04/2024 Oximetry 98 % 04/02/2024 Height 62 in 04/02/2024 Blood pressure systolic 126 mmHg 03/04/2024 Weight 166.6 lbs 03/04/2024 BMI 30.47 kg/m2 03/04/2024 Procedures Procedure Date Ordered Date Performed Result Body Sit e GET UP AND GO TEST 09/19/2023 09/19/2023 pass Encounters Encounter Location Date Provider Diagnosis [address] [address] 01/31/2024 Sal Rudd MD Tick bite W57.XXXA [address] [address] 09/19/2023 Sal Rudd MD Annual physical exam Z00.00 ; Dietary counseling Z71.3 ; At risk for falling Z91.81 ; Post-polio syndrome G14 ; Benign prostatic hyperplasia with lower urinary tract symptoms N40.1 ; Essential (primary) hypertension I10 ; Osteopathy after poliomyelitis, right lower leg M89.661 and Hypertriglyceridemia E78.[address] [address] 01/08/2024 Sal Rudd MD Tick bite, unspecified site, initial encounter W57.XXXA [address] [address] 03/04/2024 Sal Rudd MD Joint pain M25.50 and Essential (primary) hypertension I10 [address] [address] 03/18/2024 Sal Rudd MD Polymyalgia M35.[address] [address] 04/02/2024 Sal Rudd MD Actinic keratosis L57.[address] [address] 07/24/2023 Sal Rudd MD [address] [address] 09/17/2023 Sal Rudd MD [address] [address] 10/05/2023 aSl Rudd MD Pain in left knee M25.562 ; Pain in right knee M25.561 and Other chronic pain G89.[address] [address] 10/05/2023 Sal Rudd MD [address] [address] 10/22/2023 Sal Rudd MD Neck pain M54.2 ; Dorsalgia, unspecified M54.9 and Other chronic pain G89.[address] [address] 10/23/2023 Sal Rudd MD Neck pain M54.2 [facility] [address] [place] [address] 01/01/2024 Sal Rudd MD [facility] [address] [place] [address] 01/08/2024 Sal Rudd MD [facility] [address] [place] [address] 01/29/2024 Sal Rudd MD Fatigue, unspecified type R53.83 [facility] [address] [place] [address] 03/05/2024 Sal Rudd MD [facility] [address] [place] [address] 03/05/2024 Sal Rudd MD [facility] [address] [place] [address] 03/28/2024 Sal Rudd MD [facility] [address] [place] [address] 04/22/2024 Sal Rudd MD [address] [place] [address] 04/28/2024 Sal Rudd MD Assessments Encounter Date Diagnosis (ICD Code) Assessment Notes Treatment Notes Treatment Clinical Notes 09/19/2023 Annual physical exam (ICD-10 - Z00.00) 09/19/2023 Dietary counseling (ICD-10 - Z71.3) 10/05/2023 Pain in left knee (I CD-10 - M25.562) 10/05/2023 Pain in right knee (ICD-10 - M25.561) 10/22/2023 Dorsalgia, unspecifi ed (ICD-10 - M54.9) 10/22/2023 Neck pain (ICD-10 - M54.2) 10/23/2023 Neck pain (ICD-10 - M54.2) 01/08/2024 Tick bite, unspecifi ed site, initial encounter (ICD-10 - W57.XXXA) 01/29/2024 Fatigue, unspecified type (ICD-10 - R53.83) 01/31/2024 Tick bite (ICD-10 - W57.XXXA) 03/04/2024 Joint pain (ICD-10 - M25.50) Pt to lab, sitting in chair. Venous blood draw, #23 G needle, Left AC, 1st attempt. Sample obtained, pressure bandage applied, pt tolerated well. 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 Sal Rudd by Apolinar Jama, [employer] [facility] certified medical dosimetrist, on 09/19/2023. I, Dr. Sal Rudd, have personally reviewed and agreed with the information entered by the scribe. 01/08/[address] Sal Rudd by Apolinar Jama [employer] [facility] certified medical dosimetrist, on 01/08/2024. I, Dr. Sal Rudd, have personally reviewed and agreed with the information entered by the scribe. 03/04/[address] Sal Rudd by Duglas Mcclendon docplanner certified medical dosimetrist, on 03/04/2024. I, Dr. Sal Rudd, have personally reviewed and agreed with the information entered by the scribe. 04/02/[address] Sal Rudd by Duglas Mcclendon, docplanner certified medical dosimetrist, on 04/02/2024. I, Dr. Sal Rudd, have personally reviewed and agreed with the information entered by the scribe. Plan Of Treatment No Information Insurance Providers Payer Name Payer Address Payer Phone Subscriber Number Group Number Insured Name Patient Relationship to Insured Coverage Start Date Coverage End Date [employer] Medicare Advantage [address] ZEENAT SOMERS [id number] Jd Dc Self - patient is the insured Medical (General) History Medical History History ICD Code POLIO AGE 3 in 1948 RLEXT WEAKNESS - NO LUNG OR UPPER EXT PSORIATIC ARTHRITIS DX 2014 ORAL PRED and MTX [place] [facility] [place] ANEMIA IRON DEFICIENCY NEG COLO and EGD 2014 [facility] - DUE 2024 HTN ESSENTIAL ARB EFFECTIVE DJD of BACK, KNEES, CSPINE CHRONIC FILMS CONFIRM BONE ON BONE TKR LEFT KNEE 2003 Inguinal Hernia Obesity TIA VS MIGRANE - 09/2021 NEG W/U [facility] ER Hx COVID 12/2021 treated with Paxlovid un defined 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
--- OUTSIDE RECORDS SUMMARY | 2024-05-14 14:41 | XMS_ITS | Encounter Summary ---
Author Organization [facility] Address [address] [place] [address] Care Team Providers Care Student Services Advisor Name Role Phone Unavailable Primary Care Provider Unavailabl e Encounter Details Date Type Department Care Team (Latest Contact Info) Description 02/15/2015 14:05 EDT - 02/15/2015 23:59 EDT Hospital Encounter [address] [address] Unknown, Provider, Discharge Disposition: Home or Self Care Social History Tobacco Use Types Packs/Day Years Used Date Smoking Tobacco: Never Assessed Sex and Gender Information Value Date Recorded Sex Assigned at Not on file Gender Identity Not on file Sexual Orientation Not on file documented as of this encounter Discharge Disposition Disposition Code Departure Means Destination Home or Self Halfway documented in this encounter Plan of Treatment Not on file documented as of this encounter Visit Diagnoses Not on filedocumented in this encounter
--- OUTSIDE RECORDS SUMMARY | 2024-05-14 14:41 | XMS_ITS | Encounter Summary ---
Author Organization Replaced By [facility] Address [facility] [address] Care Team Providers Care Cloud Subject Matter Expert Name Role Phone Kashmir Mercado MD Primary Care Provider [phone] Encounter Details Date Type Department Care Team (Late st Contact Info) Description 01/22/2015 Orders [place] [address] Jd Evangelista MD [facility] [place] [address] Iron deficiency Social History Tobacco Use Types Packs/Day Years Used Date Smoking Tobacco: Former Cigarettes Q uit: 01/13/1995 Sex and Gender Information Value Date Recorded Sex Assigned at Not on file Gender Identity Not on file Sexual Orientation Not on file documented as of this encounter Plan of Treatment Not on file documented as of this encounter Visit Diagnoses Diagnosis Iron deficiency Iron deficiency anemia, unspecified documented in this encounter Care Teams Cloud Subject Matter Expert Relationship Specialty Start Date End Date Kashmir Mercado MD [address] [place] [id number] PCP - General 12/04/14 03/23/15 documented as of this encounter
--- OUTSIDE RECORDS SUMMARY | 2024-05-14 14:41 | XMS_ITS ---
Author Organization [facility] Address [address] [place] [id number] Care Team Providers Care International Accounting Manager Name Role Phone Tobin DIEZ, Sal Primary Care Provider REASON FOR VISIT injection Social History Sex Assigned At : Social History Observation Description Sex Assigned At Male Encounters Encounter Location Date Provider Diagnosis [address] [address] 04/28/2024 Sal Rudd MD Plan Of Treatment No Information Progress Notes * Jd OREILLY SrDOB: (79 yo M)Acc No.[id number]:04/28/2024 Patient:?Jd OREILLY Sr :1945???Age:79 Y???Sex:Male Address:[address] , [place], [address] * true * Date:? Generated for Roly todd/Ja/eTransmitting on:?05/14/2024 02:40 PM EDT
--- OUTSIDE RECORDS SUMMARY | 2024-05-14 14:41 | XMS_ITS | Encounter Summary ---
[place] [address] Care Team Providers Care Folding Machine Feeder Name Role Phone Kashmir Mercado MD Primary Care Provider [phone] Reason for Visit * Reason Onset Date Comments Other 01/19/2015 results Encounter Details Date Type Department Care Team (Late st Contact Info) Description 01/19/2015 Telephone [place] [id number] Marisa Bates RN Other (results) Social History Tobacco Use Types Packs/Day Years Used Date Smoking Tobacco: Former Cigarettes Q uit: 01/13/1995 Sex and Gender Information Value Date Recorded Sex Assigned at Not on file Gender Identity Not on file Sexual Orientation Not on file documented as of this encounter Miscellaneous Notes * Telephone Encounter - Marisa Bates RN - 01/22/2015 3:42 PM EDT Called Martina back and let her know getting a stool sample is not worthwhile at this point per Dr. Evangelista. Told her he also doesn't want Jd starting on iron at this point either. Let her know referrals for endoscopy and colonoscopy have been faxed to Dr. Forbes at [facility]. She requested copies of labs and office note be faxed to her at [phone]. This was also done today. * Telephone Encounter - Marisa Bates RN - 01/22/2015 11:24 AM EDT Jd Mack's daughter called and left message checking in because she has not heard anything from Dr. Evangelista's office since 01/20/15. * Telephone Encounter - Marisa Bates RN - 01/20/2015 1:56 PM EDT Martina called again to see if getting a stool sample would be helpful. She says she does not think hewould be able to see Dr. Forbes for 3 to 4 weeks. She also wants Dr. Evangelista to know that 18 years ago prior to a knee replacement they gave him a blood transfusion BEFORE the surgery due to anemia. According to Martina no one seems to have ever followed up on this. Told Martina that Dr. Evangelista will be asked about stool sample, but the colonoscopy has to be done because it is overdue. Martina understands that she is just trying to be proactive on what her dad needs, so if he needs a transfusion it can be done. * Telephone Encounter - Marisa Bates RN - 01/20/2015 10:55 AM EDT Jd Mack's daughter called and left message requesting call back re: Dr. Evangelista's message. Called Martina back and relayed Dr. Evangelista's message below. 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 She says it has been over 10 years since he had a colonoscopy, so he definitely needs that. They would go to Dr. Zhen Forbes at [facility] for colonoscopy and endoscopy if still indicated. She wants Dr. Evangelista to know that there was an incident in the lab when Jd had his blood drawn. First off he fasted because he was not sure what Dr. Evangelista would be ordering for tests. She says the component lab tech had a difficult time and ended up having to dig around for blood. Jd became dizzy, markham and eventually passed out. Martina says a code blue ended up being called and eventually they went to ER for further evaluation. She is not sure if that could have also contributed to the low iron saturation. Told her message will be sent to Dr. Evangelista to see what he thinks. Martina can be reached at her work number [phone] or cell [phone]. * Telephone Encounter - Marisa Bates RN - 01/20/2015 9:46 AM EDT Jd returned call this morning. Relayed Dr. Evangelista's response below. He verbalized understanding.He is going to call proposal lead writer back with where he would like to go to have procedures done. * Telephone Encounter - Marisa Bates RN - 01/19/2015 4:33 PM EDT Called Jd and left message requesting a call back to discuss Dr. Evangelista's message below. * Telephone Encounter - Marisa Bates RN - 01/19/2015 4:33 PM EDT ----- Message from Jd Evangelista MD sent at 01/14/2015 8:54 PM EDT ----- Jean Cunningham, Could you please let the pt know that he has severe iron deficiency? He needs upper endoscopy and colonoscopy. Please ask him if he would like me to make a referral for him. Thanks Jd documented in this encounter Plan of Treatment Not on file documented as of this encounter Visit Diagnoses Not on filedocumented in this encounter Care Teams Folding Machine Feeder Relationship Specialty Start Date End Date Kashmir Mercado MD [address] [place] [address] PCP - General 12/04/14 03/23/15 documented as of this encounter
--- OUTSIDE RECORDS SUMMARY | 2024-05-14 14:41 | XMS_ITS | Encounter Summary ---
Author Organization [facility] Address [address] [place] [address] Care Team Providers Care Home Stager Name Role Phone Sal Hinojosa MD Primary Care Provider [phone] Encounter Details Date Type Department Care Team (Late st Contact Info) Description 02/15/2015 Results Only [facility] [phone] Wilmer More, DO [address] [facility] [address] [place], [place] [id number] Social History Tobacco Use Types Packs/Day Years Used Date Smoking Tobacco: Never Assessed Sex and Gender Information Value Date Recorded Sex Assigned at Not on file Gender Identity Not on file Sexual Orientation Not on file documented as of this encounter Plan of Treatment Not on file documented as of this encounter Procedures Procedure Name Priority Date/Time Associated Diagnosis Comments SURGICAL PATHOLOGY Routine 02/15/2015 10 :50 EDT documented in this encounter Results * SURGICAL PATHOLOGY (02/15/2015 10:50 EDT) Pathology Report: SURGICAL PATHOLOGY REPORT Reports generated via electronic interface contain original data; however they are lacking the format of the original report. Caution should be taken when reading/interpret ing unformatted reports. Name: ? DENILSON DESTINY Ox[place] SR ? Accession #: ? [id number] ? : ? 1945 (Age: 69) ??M ? Collect Date: ? 02/15/2015 ? Location: ? [facility] ? Receive Date: ? 02/15/2015 ? Provider: WILMER MORE DO Copy to: SAL HINOJOSA MD ? Final Pathologic Diagnosis: RECTUM, POLYP, BIOPSY: - Hyperplastic polyp. Document reviewed and electronically signed by: GIANA SOLITARIO MD Report ??Date: 02/19/2015 08:26 By the signature above, the attending physician certifies that he/she has personally conducted a gross and/or microscopic examination of the described specimens and rendered or confirmed the above diagnosis. Specimen(s) Received: Rectal polyp Clinical History: Anemia Gross Description: ? Received in formalin labelled with proper patient identification (initials D, R) and rectal polyp is a single pink-hills tissue fragment (0.2 x 0.2 x 0.2 cm). Submitted intact in 1. M[facility] Holm 02/16/2015 11:14 AM End of Report [facility] 02/15/2015 10:5 0 EDT 02/15/2015 10:50 EDT Wilmer More DO PATHOLOGY ORDER [facility] [address] [place] [address] documented in this encounter Visit Diagnoses Not on filedocumented in this encounter Care Teams Home Stager Relationship Specialty Start Date End Date Sal Hinojosa MD [address] [place] [address] PCP - General 02/16/15 documented as of this encounter
--- OUTSIDE RECORDS SUMMARY | 2024-05-14 14:41 | XMS_ITS | Encounter Summary ---
Author Organization [facility] Address [facility] [place] [address] Care Team Providers Care Infrastructure Consultant Name Role Phone Kashmir Mercado MD Primary Care Provider [phone] Reason for Visit * Reason Comments Follow-up Encounter Details Date Type Department Care Team (Late st Contact Info) Description 02/01/2015 3:45 PM EDT Follow-[place] [address] Jd Evangelista MD [facility] [place] [address] Psoriatic arthritis Discharge Disposition: Home Social History Tobacco Use Types Packs/Day Years Used Date Smoking Tobacco: Former Cigarettes Q uit: 01/13/1995 Sex and Gender Information Value Date Recorded Sex Assigned at Not on file Gender Identity Not on file Sexual Orientation Not on file documented as of this encounter Last Filed Vital Signs Vital Sign Reading Time Taken Comments Blood Pressure 110/67 02/01/2015 3:53 PM EDT Pulse 75 02/01/2015 3:53 PM EDT Temperature 36.6 ??C (97.9 ??F) 02/01/2015 3:53 PM ED T Respiratory Rate - - Oxygen Saturation 97% 02/01/2015 3:53 PM EDT Inhaled Oxygen Concentration - - Weight 83.5 kg (184 lb) 02/01/2015 3:53 PM EDT Height 160 cm (5' 3) 02/01/2015 3:53 PM EDT Body Mass Index 32.59 02/01/2015 3:53 PM EDT documented in this encounter Patient Instructions * Patient Instructions* Jd Evangelista MD - 02/03/2015 2:41 PM EDT 1) Continue daily prednisone, 15 mg and taper to 10 mg as tolerated. 2) Check labs today. 3) Return to follow up in 3 months. documented in this encounter Progress Notes * Jd Evangelista MD - 02/01/2015 3:52 PM EDT REASON FOR VISIT: Follow up for possible psoriasis and psoriatic arthritis. INTERVAL HISTORY: The pt was a 69-year-old male, who returned for a follow up of possible psoriasis and psoriatic arthritis. The pt noted that since his initial visit on January 13, 2015, he had started a trial of daily prednisone, 15 mg for symptomatic control of his neck pain, low back pain, and multiple joint pain. He felt that his overall pain and stiffness had significantly improved after he started prednisone. Overall, the pain remained worst in his neck, followed by the low back, left knee, and thenright shoulder. He was able to close his hands better due to improvement in the swelling and stiffness in his hands. He tolerated prednisone well without any fever, chest pain, dyspnea, nausea, dysuri a, rash, blood clots, polydipsia, or dizziness. Laboratory studies obtained after his initial visitwere normal for chemistry, folate, vitamin B12, 25- hydroxyvitamin D, TSH, and ESR. He was noted to have mild leukocytosis with a WBC of 11.3. His CRP was elevated with a level of 13.2. He had severe iron deficiency. He was seronegative for RF, anti-CCP antibodies, HLA B27, H. pylori antibodies, andLyme antibodies. Radiographic studies of the cervical spine showed multilevel degenerative changes of the cervical spine, most evident at C5-C6 and C6-C7; while those of the lumbar spine showed multilevel degenerative changes, most notable at the lower thoracic spine and upper lumbar spine involving T10-T11, T11-T12, T12-L1 and L1-L2, facet arthropathy at the lower levels, most severe at L4-L5 and L5-S1, degenerative changes of the bilateral sacroiliac joints, and calcification of the abdominalaorta. PAST MEDICAL HISTORY: Hypertension H/o poliomyelitis H/o [...] with his . 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 FAMILY HISTORY: Mother - Congestive heart failure, hypertension; of heart disease at the age of 89. Father - Unknown. Sister - Psoriasis. Daughters #1 and #4 - Psoriasis. PHYSICAL EXAMINATION: Vitals 02/01/2015 SYSTOLIC 110 DIASTOLIC 67 PULSE 75 TEMPERATURE 97.9 Height (Jamaican) 5' 3 Height (Metric) 160 cm Weight (Jamaican) 184 lbs Weight (Metric) 83.462 kg BODY MASS INDEX 32.6 kg/m2 Pulse Oximetry 97 General - Alert, co-operative, no apparent distress, oriented x 3. HEENT - Conjunctiva pink, no sclerae icterus or malar rash. Psych - Affect normal. IMPRESSION: 1) Questionable history of psoriasis, 2) possible psoriatic arthritis, and 3) elevated CRP in a 69-year-old male. The pt's overall symptomatology, particularly in the presence of elevated CRP, questionable history of scalp psoriasis, and extensive family history of psoriasis, is consistent with seronegative spondyloarthropathy, particularly psoriatic arthritis. That said, this provider was not able to identify scalp psoriasis to confer a diagnosis of psoriatic arthritis. He did respond to prednisone with significant improvement in his joint pain and stiffness. Since he has toleratedprednisone well, he will continue prednisone, and taper prednisone as tolerated until infectious workup is complete. He will undergo repeat laboratory studies and infectious today to prepare him for possible DMARD use. 4) Severe iron deficiency. The etiology of the pt's severe iron deficiency is unknown. He is currently awaiting a repeat colonoscopy prior to instituting any plans. 5) Multilevel degenerative changes of the cervical spine, most evident at C5-C6 and C6-C7; 6) moderate to severe bilateral neuroforaminal narrowing at C6-7, right greater than left; 7) multilevel degenerative changes, most notable at the lower thoracic spine and upper lumbar spine involving T10-L2;8) facet arthropathy at the lower levels, most severe at L4-L5 and L5-S1; and 9) osteoarthritis of bilateral SI joints. The pt's overall neck pain and low back pain is partly related to structural defects as documented in the radiographic studies of the cervical and lumbar spine. Treatment will focus on symptomatic pain control. RECOMMENDATIONS: 1) Continue daily prednisone, 15 mg and taper to 10 mg as tolerated. 2) Check labs today. 3) Return to follow up in 3 months. Jd Evangelista MD, PhD documented in this encounter Plan of Treatment Not on file documented as of this encounter Visit Diagnoses Diagnosis Psoriatic arthritis Psoriatic arthropathy documented in this encounter Care Teams Infrastructure Consultant Relationship Specialty Start Date End Date Kashmir Mercado MD [address] [place] [id number] PCP - General 12/04/14 03/23/15 documented as of this encounter
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
--- OUTSIDE RECORDS SUMMARY | 2024-05-14 14:41 | XMS_ITS | Clinical Summary ---
Author Organization [facility] Address [address] [place] [address] Care Team Providers Care Embedded Systems Software Engineer Name Role Phone Sal Rudd MD Primary Care Provider [phone] Social History Tobacco Use Types Packs/Day Years Used Date Smoking Tobacco: Never Assessed Sex and Gender Information Value Date Recorded Sex Assigned at Not on file Gender Identity Not on file Sexual Orientation Not on file Plan of Treatment Health Maintenance Due Date Last Done Comments RSV Immunization ( o r 60+ Years) (1 - 1-dose 60+ series) 2005 Fall Risk Screening 2010 COVID-19 Vaccine ( season) 2023 Hepatitis C Screen Completed 02/05/2020 Procedures Procedure Name Priority Date/Time Associated Diagnosis Comments HEPATITIS C AB W REFLEX TO HCV RNA BY PCR Routine 02/05/2020 10:35 EDT from Last 3 Months or Most Recently Relevant to Health Maintenance Results * HEPATITIS C AB W REFLEX TO HCV RNA BY PCR (02/05/2020 10:35 EDT) Hep C Antibody Negative Negative 02/06/2020 11:33 EDT [facility] Blood VENOUS BLOOD / Unknown 02/05/2020 10:35 EDT 02/05/2020 17:19 EDT Provider Outr Resulting Lab CHEMISTRY & BLOOD GAS ORDERABLES [facility] [address] [place] [address] from Last 3 Months or Most Recently Relevant to Health Maintenance Care Teams Embedded Systems Software Engineer Relationship Specialty Start Date End Date Sal Rudd MD [address] [place] [id number] PCP - General 02/16/15
--- OUTSIDE RECORDS SUMMARY | 2024-05-14 14:41 | XMS_ITS | Referral Summary ---
Author Organization [facility] Address [address] [place] [address] Care Team Providers Care Fire Watcher Name Role Phone Sal Rudd MD Primary Care Provider [phone] Social History Tobacco Use Types Packs/Day Years Used Date Smoking Tobacco: Never Assessed Sex and Gender Information Value Date Recorded Sex Assigned at Not on file Gender Identity Not on file Sexual Orientation Not on file Plan of Treatment Not on file Procedures Procedure Name Priority Date/Time Associated Diagnosis Comments HEPATITIS C AB W REFLEX TO HCV RNA BY PCR Routine 02/05/2020 10:35 EDT from Last 3 Months or Most Recently Relevant to Health Maintenance Results * HEPATITIS C AB W REFLEX TO HCV RNA BY PCR (02/05/2020 10:35 EDT) Hep C Antibody Negative Negative 02/06/2020 11:33 EDT [facility] Blood VENOUS BLOOD / Unknown 02/05/2020 10:35 EDT 02/05/2020 17:19 EDT Provider Outr Resulting Lab CHEMISTRY & BLOOD GAS ORDERABLES [facility] [address] [place] [address] from Last 3 Months or Most Recently Relevant to Health Maintenance Care Teams Fire Watcher Relationship Specialty Start Date End Date Sal Rudd MD [address] [place] [id number] PCP - General 02/16/15
--- OUTSIDE RECORDS SUMMARY | 2024-05-14 14:41 | XMS_ITS | Encounter Summary ---
Author Organization [facility] Address [facility] [place] [address] Care Team Providers Care Screen Printer Name Role Phone Sal Rudd MD Primary Care Provider [phone] Reason for Visit * Reason Comments Follow-up Encounter Details Date Type Department Care Team (Late st Contact Info) Description 03/24/2015 2:05 PM EDT Follow-[place] [address] Jd Evangelista MD [facility] [address] [place] [address] Psoriatic arthritis; Chronic low back pain Discharge Disposition: Home Social History Tobacco Use Types Packs/Day Years Used Date Smoking Tobacco: Former Cigarettes Q uit: 01/13/1995 Sex and Gender Information Value Date Recorded Sex Assigned at Not on file Gender Identity Not on file Sexual Orientation Not on file documented as of this encounter Last Filed Vital Signs Vital Sign Reading Time Taken Comments Blood Pressure 126/64 03/24/2015 2:15 PM EDT Pulse 97 03/24/2015 2:15 PM EDT Temperature - - Respiratory Rate 14 03/24/2015 2:15 PM EDT Oxygen Saturation 96% 03/24/2015 2:15 PM EDT Inhaled Oxygen Concentration - - Weight 83.5 kg (184 lb) 03/24/2015 2:15 PM EDT Height 160 cm (5' 3) 03/24/2015 2:15 PM EDT Body Mass Index 32.59 03/24/2015 2:15 PM EDT documented in this encounter Patient Instructions * Patient Instructions* Jd Evangelista MD - 03/24/2015 2:55 PM EDT 1) Start weekly oral methotrexate, 15 mg. 2) Start daily folic acid, 1 mg. 3) Start twice daily ferrous gluconate, 324 mg. 4) Taper daily prednisone, 10 mg. 5) Start bedtime Flexeril, 5 mg. 6) Get MRI of the lumbar spine. 7) Return to follow up in three months. documented in this encounter Progress Notes * Jd Evangelista MD - 03/24/2015 2:35 PM EDT REASON FOR VISIT: Follow up for psoriasis and psoriatic arthritis. INTERVAL HISTORY: The pt was a 69-year-old male, who returned for a follow up of psoriasis and psoriatic arthritis. The pt noted that since his last visit on February 01, 2015, he continued to be on daily prednisone, 15 mg for symptomatic control of his psoriatic arthritis. He felt that his overall pain and stiffness had significantly improved by 85-90% after he started prednisone. Overall, the pain remainedworst in his the low back, such that he was not able to sleep through the night due to his low backpain. He tolerated prednisone well without any fever, chest pain, dyspnea, nausea, dysuria, rash, blood clots, polydipsia, or dizziness. Laboratory studies obtained at an outside facility after his last visit showed that he was seronegative for hepatitis panel and quantiferon. He underwent colonoscopy, which was reportedly normal. PAST MEDICAL HISTORY: Hypertension H/o poliomyelitis H/o [...] with his . 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 FAMILY HISTORY: Mother - Congestive heart failure, hypertension; of heart disease at the age of 89. Father - Unknown. Sister - Psoriasis. Daughters #1 and #4 - Psoriasis. PHYSICAL EXAMINATION: Vitals 03/24/2015 SYSTOLIC 126 DIASTOLIC 64 PULSE 97 RESPIRATIONS 14 Height (Vietnamese) 5' 3 Height (Metric) 160 cm Weight (Vietnamese) 184 lbs Weight (Metric) 83.462 kg BODY MASS INDEX 32.6 kg/m2 Pulse Oximetry 96 General - Alert, co-operative, no apparent distress, oriented x 3. HEENT - Conjunctiva pink, no sclerae icterus or malar rash. Psych - Affect normal. IMPRESSION: 1) History of psoriasis, 2) possible psoriatic arthritis, and [...] joint pain and stiffness. Since he has tolerated prednisone well, he will continue prednisone, and taper prednisone as tolerated. He will start weekly oral methotrexate to facilitate prednisone taper. He will undergo surveillance studies at the next visit. 4) Severe iron deficiency. The etiology of the pt's severe iron deficiency is unknown. Since his colonoscopy is normal, he will start iron supplement for his severe iron deficiency. 5) Multilevel degenerative changes of the cervical [...] the cervical and lumbar spine. He will undergo MRI studies of the lumbar spine for further evaluation of structural defects. Meanwhile, treatment will focus on symptomatic pain control with Flexeril for now. RECOMMENDATIONS: 1) Start weekly oral methotrexate, 15 mg. 2) Start daily folic acid, 1 mg. 3) Start twice daily ferrous gluconate, 324 mg. 4) Taper daily prednisone, 10 mg. 5) Start bedtime Flexeril, 5 mg. 6) Get MRI of the lumbar spine. 7) Return to follow up in three months. Jd Evangelista MD, PhD documented in this encounter Plan of Treatment Not on file documented as of this encounter Visit Diagnoses Diagnosis Psoriatic arthritis Psoriatic arthropathy Chronic low back pain Lumbago documented in this encounter Care Teams Screen Printer Relationship Specialty Start Date End Date Sal Rudd MD [address] [place] [address] PCP - General 03/24/15 documented as of this encounter
--- OUTSIDE RECORDS SUMMARY | 2024-05-14 14:41 | XMS_ITS ---
Author Organization [facility] Address [address] [place] [id number] Care Team Providers Care Auto Dealership Porter Name Role Phone Tobin DIEZ, Sal Primary Care Provider REASON FOR VISIT Medication Question Social History Sex Assigned At : Social History Observation Description Sex Assigned At Male Encounters Encounter Location Date Provider Diagnosis [address] [address] 04/22/2024 Sal Rudd MD Plan Of Treatment No Information Progress Notes * Jd OREILLY SrDOB: (79 yo M)Acc No.[id number]:04/22/2024 Patient:?Jd OREILLY Sr :1945???Age:79 Y???Sex:Male Address:[address] , [place], [address] * true * Date:? Generated for Roly todd/aJ/eTransmitting on:?05/14/2024 02:40 PM EDT
--- OUTSIDE RECORDS SUMMARY | 2024-05-14 14:41 | XMS_ITS ---
Author Organization [facility] Address [address] [place] [id number] Care Team Providers Care Dx Board Operator Name Role Phone Sal Rudd MD Primary Care Provider [phone] Allergies Allergen (clinical drug ingredient) Drug/Non Drug Allergy documented on EMR Reaction Allergy Type Onset Date Status Lactose GI Upset Drug Allergy Active lisinopril Lisinopril Cough Drug Allergy Activ e Seasonal Runny nose, watery eyes Drug Allergy Active doxycycline Doxycycline Bilateral Blisters on Hands Drug Allergy Active Sulfa Rash Drug Allergy Active Bextra Rash Drug Allergy Active REASON FOR VISIT spot on ear Medications Medication SIG (Take, Route, Frequency, Duration) Notes Start Date End Date Status Tylenol PM 500-25 MG 1 tablet at bedtime as needed Orally Once a day Active Meloxicam 15 MG 1 tablet Orally Once a day for 30 days 03/28/2024 Active Losartan Potassium 50 MG TAKE TWO TABLET S BY MOUTH EVERY DAY for 90 Active Omeprazole 20 MG 1 capsule 30 minutes before morning meal Orally Once a day for 90 days Active Centrum Silver Ultra Mens 1 Tablet 1 Tablet Orally Once a day Active Tumeric 1 capsule Orally Twi ce a day 1500mg Active Aspirin 81 MG 1 tablet Orally ever y other day prn Active Social History Tobacco Use: Social History Observation Description Date Details (start date - stop date) Never Smoker NA - NA Sex Assigned At : Social History Observation Description Sex Assigned At Male OTHER TOBACCO USE: Question Answer Notes Are you an other tobacco user? No Tobacco Control (Standard) Question Answer Notes Tobacco use: Nonsmoker Vital Signs Temperature 98.1 degrees Fahrenheit 04/02/20 Heart Rate 66 BPM 04/02/2024 Oximetry 98 % 04/02/2024 Height 62 in 04/02/2024 Encounters Encounter Location Date Provider Diagnosis [address] [address] 04/02/2024 Sal Rudd MD Actinic keratosis L57.0 Assessments Encounter Date Diagnosis (ICD Code) Assessment Notes Treatment Notes Treatment Clinical Notes 04/02/2024 Actinic keratosis (ICD-10 - L57.0) 04/02/[address] Sal Rudd by Duglas Mcclendon Readmill scribe, on 04/02/2024. I, Dr. Sal Rudd, have personally reviewed and agreed with the information entered by the scribe. Plan Of Treatment Treatment Notes Assessment Notes Other Scribed for Dr. Luis Felipe Rudd by Duglas Mcclendon, Readmill scribe, on 04/02/2024. I, Dr. Sal Rudd, have personally reviewed and agreed with the information entered by the scribe. Next Appt Details Follow Up: prn, Reason: Procedure Notes * Category Sub-Category Detail Notes Cryotherapy benign lesion Reason for removal Pat ient wants removal Consent The patient understo od all the risks and benefits prior to treatment. The risks explained included scarring, hyper and/or hypo pigmentation. Although this treatment is highly effective, recurrences do occur and this was explained to the patient. The patient further understood that these lesions are benign and no specific treatment is necessarily indicated Method Liquid nitrogen was used to treat the lesion present on the left ear using 3 freeze-thaw cycle with 30 sec thaw time Post-op instruction Post-op instructions were given orally and in writing. The patient was instructed to clean the site 2-3 times a day and apply bacitracin ointment. Signs of infection were discussed both orally and in writing. The patient was informed to call if any signs of infection develop such as increasing pain, purulent drainage or beefy redness. The patient was informed that a blister may occur at the cryo site and that this is an expected event. Progress Notes * Destiny OREILLY SrDOB: (78 yo M)Acc No.[id number]:04/02/2024 SDA Long Patient:?Destiny OREILLY Provider:?Sal Rudd M.D. :1945???Age:78 Y???Sex:Male Karlo e:04/02/2024 Address:[address] , [facility] Subjective: * Chief Complaints: * ???1. Spot on ear. * HPI: ???INTERIM HISTORY::? PATIENT IS A 78-YEAR-OLD MALE PRESENTING TODAY FOR LESION ON LEFT EAR. DESTINY HAS A LESION ON HIS LEFT EAR, WHICH HE WOULD LIKE TO GET TREATED TODAY-CRYOTHERAPY. HE ALSO NOTES OOZING FROM THE SITE. HE UNDERWENT CRYOTHERAPY TO THE SAME LESION ABOUT A YEAR AGO, HOWEVER IT HAS EITHER RECURRED OR PERSISTED. * ROS:?Pertinent positives and negatives in HPI. * Medical History:?POLIO AGE 3 in 1947 RLEXT WEAKNESS - NO LUNG OR UPPER EXT, PSORIATIC ARTHRITIS DX 2014 ORAL PRED and MTX STARTED NO RHEUM [facility] FOLLOWING, ANEMIA IRON DEFICIENCY NEG COLO and EGD 2014 [facility] - DUE 2024, HTN ESSENTIAL ARB EFFECTIVE, DJD of BACK, KNEES, CSPINE CHRONIC FILMS CONFIRM BONE ON BONE, TKR LEFT KNEE 2003, Inguinal Hernia, Obesity, TIA VS MIGRANE - 09/2021 NEG W/U [facility] ER, Hx COVID 12/2021 treated with Paxlovid, LEFT DIAPHRAGMATIC HERNIA - GASTRIC AND BOWEL PRESENT - TRAUMA RELATED REMOTE. * Surgical History:?Left Total Knee Replacement 2000, Inguinal Hernia Repair Unknown, Inguinal Hernia Repair Unknown, Left Rotator Cuff Unknown, Leg surgery numerous on right leg as result of polio childhood. * Hospitalization/Major Diagno stic Procedure:?Polio childhood. * Family History:?Mother: dece ased, Congestive Heart Failure, Breast Cancer, of Heart Disease, diagnosed with Other malignant neoplasm of unspecified site, Unspecified heart disease.?Father: unknown, No known history.?Daughter(s): Psoriasis, diagnosed with Other specified conditions influencing health status.?Sister: Psoriasis, Hyperlipidemia, diagnosed with Other specified conditions influencing health status.? * Social History:?TOBACCO USE:?Tobacco Control (Standard)?Tobacco use:?Nonsmoker ?OTHER TOBACCO USE?Are you an other tobacco user??No ???DAUGHTER, NAHUM, IS ATTENTIVE AND UNOFFICIAL DPOA FOR HEALTHCARE. * Medications:?Taking Aspirin 81 MG Tablet Chewable 1 tablet Orally every other day , Notes to Pharmacist: prn, Taking Centrum Silver Ultra Mens 1 Tablet Tablet 1 Tablet Orally Once a day , Taking Omeprazole 20 MG Capsule Delayed Release 1 capsule 30 minutes before morning meal Orally Once a day , Taking Tumeric Capsule 1 capsule Orally Twice a day , Notes to Pharmacist: 1500mg, Taking Tylenol PM 500-25 MG Tablet 1 tablet at bedtime as needed Orally Once a day , Taking Losartan Potassium 50 MG Tablet TAKE TWO TABLETS BY MOUTH EVERY DAY , Taking Meloxicam 15 MG Tablet 1 tablet Orally Once a day , Discontinued predniSONE 10 MG Tablet 1 tablet Orally Once a day , stop date 04/01/2024, Discontinued predniSONE 5 MG Tablet 1 tablet Orally Once a day THEN DROP TO 2.5 MG DAILY-4 WEEKS, stop date 04/01/2024, Notes to Pharmacist: PLEASE DROP DOSE TO 2.5MG IN 4 WEEKS, Medication List reviewed and reconciled with the patient * Allergies:?Sulfa: Rash - All ergy, Bextra: Rash - Allergy, Doxycycline: Bilateral Blisters on Hands - Allergy, Lisinopril: Cough - Allergy, Lactose: GI Upset - Allergy, Seasonal: Runny nose, watery eyes - Allergy. Objective: * Vitals:?Temp: 98.1 F, HR:66B PM, Oxygen Sat: 98 %, Height: 62 in. * Examination: ???General Examination: ?GENERAL APPEARANCE:?BRIGHT, ALERT AND COMFORTABLE.?EYES:?PUPILS EQUAL AND REACTIVE.?HEART:?SOUNDS BENIGN.?LUNGS:?CLEAR.?SKIN:?1 LESION/SPOT ON THE LEFT EAR; AK, WHICH IS SLIGHTLY THICKENED AND ROUGH.?.? Assessment: * Assessment: 1.?Actinic keratosis - L57.0 (Primary)??? ACTINIC KERATOSIS, LEFT EAR: VERY LESS PROBABILITY THAT IT IS A BASAL CELL OR SQUAMOUS CELL. GIVEN IT'S SUPERFICIAL, I THINK ANOTHER ATTEMPT AT CRYOTHERAPY MAKES SENSE. CRYOTHERAPY PERFORMED TO THE LESION AND HE TOLERATED THE PROCEDURE QUITE WELL. WOUND CARE REVIEWED AND HE WILL FOLLOW UP HERE ON A PRN BASIS. Plan: * Treatment: * Procedures:?Cryotherapy benign lesion:?Reason for removal?Patient wants removal.?Consent?The patient understood all the risks and benefits prior to treatment. The risks explained included scarring, hyper and/or hypo pigmentation. Although this treatment is highly effective, recurrences do occur and this was explained to the patient. The patient further understood that these lesions are benign and no specific treatment is necessarily indicated.?Method?Liquid nitrogen was used to treat the lesion present on the left ear using 3 freeze-thaw cycle with 30 sec thaw time.?Post-op instruction?Post-op instructions were given orally and in writing. The patient was instructed to clean the site 2-3 times a day and apply bacitracin ointment. Signs of infection were discussed both orally and in writing. The patient was informed to call if any signs of infection develop such as increasing pain, purulent drainage or beefy redness. The patient was informed that a blister may occur at the cryo site and that this is an expected event..? * Procedure Codes:?G0467 [facility] VISIT ESTABLISHED PATIENT, [id number] DESTRUCT BENIGN LESION, 08-26 * Follow Up:?prn * * Sign off status: Completed true * Provider:?Sal Rudd M.D. Karlo e:?04/02/2024 Generated for Roly todd/Ja/Norahitting on:?05/14/2024 02:41 PM EDT History and Physical Notes * Examination Category Sub-Category Detail Notes General Examination GENERAL APPEARANCE: BRIGHT, ALERT AND COMFORTABLE EYES: PUPILS EQUAL AND VIRAL CTIVE HEART: SOUNDS BENIGN LUNGS: CLEAR SKIN: 1 LESION/SPOT ON THE LEFT EAR; AK, WHICH IS SLIGHTLY THICKENED AND ROUGH.
[2024-05-14 15:46] LABS: Troponin I < 4 ng/L (<or=76)
[2024-05-14 22:48] LABS: PSA, Screening 3.2 ng/mL (<=6.5)
[2024-05-15 09:42] LABS: Lyme Ab w Rflx to Lyme Confirm Negative (Negative)
[2024-05-16 09:25] LABS: Parathyroid Hormone,Intact 39 pg/mL (19-88)
[2024-05-16 21:48] LABS: Anaplasma phagocytophilum Negative (Negative); B. miyamotoi PCR Negative (Negative); Babesia divergens/MO-1 Negative (Negative); Babesia duncani Negative (Negative); Babesia microti Negative (Negative); Ehrlichia chaffeensis Negative (Negative); Ehrlichia ewingii/canis Negative (Negative); Ehrlichia muris eauclairensis Negative (Negative)
[2024-05-19 14:10] LABS: 1,25-Dihydroxyvitamin D 43 pg/mL (18-64)
== END 2024-05-14 16:26 | disposition home or self-care (01) ==
PROVIDERS: Emergency Provider Student in an Organized Health Care Education/Training Program; PCP Family Medicine
DX: R55 Syncope and collapse (principal); K44.9 Diaphragmatic hernia without obstruction or gangrene; E83.51 Hypocalcemia; I10 Essential (primary) hypertension; Z79.85 Long-term (current) use of injectable non-insulin antidiabetic drugs; Z95.2 Presence of prosthetic heart valve; Z87.891 Personal history of nicotine dependence
CPT/HCPCS: 36415; 71275; 80053; 82306; 84153; 87798; 93005; 93308; 96360; 99285; 70450; 82310; 82652; 83036; 83735; 83970; 84443; 84484; 85025; 85610; 85730; 86618; 93010; 99284; J0613; J3490

== ENCOUNTER 2024-05-23 10:54 | Outpatient (RCR) | payer MEDICARE, SELFPAY ==
--- NOTE | 2024-05-29 07:15 | HOLTER_ITS ---
APPROVED REPORT Conclusion This a 48-hour Holter monitor Rhythm throughout was sinus with an average heart rate of 77. Minimum was 62 maximum 105 There were very rare isolated atrial and ventricular ectopic beats There was no atrial fibrillation, no high-grade AV block, no pauses greater than 3 seconds No symptoms were reported
== END 2024-06-12 23:59 | disposition home or self-care (01) ==
LOC: CARDOPNVT 10:54
PROVIDERS: PCP Family Medicine; Visit Provider Student in an Organized Health Care Education/Training Program
DX: R55 Syncope and collapse (principal)
CPT/HCPCS: 93227; 93225; 93226

== ENCOUNTER 2024-09-17 08:36 | Outpatient (REF) | payer MEDICARE, SELFPAY ==
--- NOTE | 2024-09-17 07:48 | SKI_PTH ---
PATIENT: Jd Dc LOC: [facility] U#:[id number] AGE/SX: 79/M ROOM: RE09/17/[address]: Arthur Chan MD : 1945 BED: DIS: 09/17/2024 SPEC #: [id number] RECD: 09/17/24 12:39 STATUS: KASANDRA REVikash #: [id number] MARILYN: 09/17/24 07:[address]: Arthur Chan DEPT: Surgical Specimen RECD BY: Ashlyn Chong ENTERED: 09/17/24 12:39 SP TYPE: JULIANNA VAZQUEZ DR: Sal Rudd Tissues: 1 - SKIN BIOPSY(SHAVE/PUNCH) Procedures: SKIN LEVEL 4 Comments: [id number]
== END 2024-09-17 08:37 | disposition home or self-care (01) ==
LOC: LBN 08:36
PROVIDERS: PCP Family Medicine; Visit Provider Otolaryngology
DX: L98.9 Disorder of the skin and subcutaneous tissue, unspecified (principal); C44.91 Basal cell carcinoma of skin, unspecified
CPT/HCPCS: 88305

== ENCOUNTER 2024-10-16 11:29 | Outpatient (REF) | payer MEDICARE, SELFPAY ==
--- NOTE | 2024-10-16 07:42 | SKI_PTH ---
PATIENT: Jd Dc LOC: [facility] U#:[id number] AGE/SX: 79/M ROOM: RE10/16/[address]: Arthur Chan MD : 1945 BED: DIS: 10/16/2024 SPEC #: [id number] RECD: 10/16/24 12:42 STATUS: KASANDRA REQ #: [id number] MARILYN: 10/16/24 07:[address]: Arthur Chan DEPT: Surgical Specimen RECD BY: Ashlyn Chong ENTERED: 10/16/24 12:43 SP TYPE: JULIANNA VAZQUEZ DR: Sal Rudd Tissues: 1 - SKIN BIOPSY(SHAVE/PUNCH) Procedures: SKIN LEVEL 4 Comments: [id number]
== END 2024-10-16 11:30 | disposition home or self-care (01) ==
LOC: LBN 11:29
PROVIDERS: PCP Family Medicine; Visit Provider Otolaryngology
DX: C44.310 Basal cell carcinoma of skin of unspecified parts of face (principal)
CPT/HCPCS: 88305

== ENCOUNTER 2024-11-05 14:40 | Outpatient (CLI) | payer MEDICARE, SELFPAY ==
[2024-11-05 14:10] LABS: Abs Immature Grans 0.02 10^3/uL (0.0-0.06); Absolute Basophil Count 0.06 10^3/uL (0.0-0.2); Absolute Eosinophil Count 0.34 10^3/uL (0.0-0.7); Absolute Lymphocyte Count 1.69 10^3/uL (1.2-3.4); Absolute Monocyte Count 0.73 10^3/uL (0.1-0.8); Absolute Neutrophil Count 5.03 10^3/uL (1.2-6.7); Basophils % 0.8 %; Eosinophils % 4.3 %; HCT 37.2 % (40.0-50.0); HGB 11.8 g/dL (13.5-17.5); Immature Grans % 0.3 %; Lymphocytes % 21.5 %; MCH 28.5 pg (27.0-33.0); MCHC 31.7 % (32.0-36.0); MCV 90 fL (80-95); MPV 10.3 fL (8.0-11.0); Monocytes % 9.3 %; Neutrophils % 63.8 %; Platelet Count 320 10^3/uL (130-400); RBC 4.14 10^6/uL (4.36-5.78); RDW-SD 46.8 fL; WBC 7.87 10^3/uL (4.4-10.8)
[2024-11-05 14:33] LABS: Hemoglobin A1C 5.8 % (<5.7)
[2024-11-05 15:52] LABS: ALT 15 U/L (16-63); AST 17 U/L (15-37); Albumin 3.6 g/dL (3.4-5.0); Alkaline Phosphatase 36 U/L (46-116); Anion Gap 8.9 mmol/L (3-11); BUN 22 mg/dL (7-18); Bilirubin, Total 0.7 mg/dL (0.2-1.0); CO2 26.1 mmol/L (21.0-32.0); Calcium 9.4 mg/dL (8.5-10.1); Calculated LDL 120 mg/dL (<100); Chloride 104 mmol/L (98-107); Cholesterol 201 mg/dL (<200); Estimated GFR 76.56 (mL/min/1.73m2); Glucose 122 mg/dL (74-106); HDL Cholesterol 58 mg/dL (>or=40); Sodium 139 mmol/L (136-145); Total Protein 7.3 g/dL (6.4-8.2); Triglyceride 118 mg/dL (<150)
== END 2024-11-05 14:41 | disposition home or self-care (01) ==
LOC: LBO 14:40
PROVIDERS: PCP Family Medicine; Visit Provider Family Medicine
DX: E78.1 Pure hyperglyceridemia (principal); R73.09 Other abnormal glucose; D50.9 Iron deficiency anemia, unspecified
CPT/HCPCS: 36415; 80053; 80061; 83036; 85025

== ENCOUNTER 2024-12-23 16:57 | Outpatient (REF) | payer MEDICARE, SELFPAY ==
--- NOTE | 2024-12-23 11:18 | SKI_PTH ---
PATIENT: Jd Dc LOC: [facility] U#:[id number] AGE/SX: 79/M ROOM: RE12/23/[address]: Arthur Chan MD : 1945 BED: DIS: 12/23/2024 SPEC #: [id number] RECD: 12/23/24 17:04 STATUS: KASANDRA MONTGOMERY #: [id number] MARILYN: 12/23/24 11:[address]: Arthur Chan DEPT: Surgical Specimen RECD BY: Ashlyn Chong ENTERED: 12/23/24 17:04 SP TYPE: JULIANNA VAZQUEZ DR: Sal Rudd Tissues: 1 - SKIN BIOPSY(SHAVE/PUNCH) Procedures: SKIN LEVEL 4 Comments: [id number]
== END 2024-12-23 16:58 | disposition home or self-care (01) ==
LOC: LBN 16:57
PROVIDERS: PCP Family Medicine; Referring Provider Family Medicine; Visit Provider Otolaryngology
DX: L82.1 Other seborrheic keratosis (principal)
CPT/HCPCS: 88305

== ENCOUNTER 2025-05-25 11:11 | Outpatient (CLI) | payer MEDICARE, SELFPAY | END 2025-05-25 11:12 | disposition home or self-care (01) | LOC: LBO 11:12 | PROVIDERS: PCP Family Medicine; Visit Provider Family Medicine | DX: N40.1 Benign prostatic hyperplasia with lower urinary tract symptoms (principal) | CPT/HCPCS: 36415; 84154 ==